=== PATIENT | male | born 1940 | race Caucasian/White ===

== ENCOUNTER 2019-06-12 15:50 | Inpatient (IN) ==
[2019-06-12] MEDS ORDERED: Furosemide 40 MG/4 ML VIAL IVP SCH (18:04)
[2019-06-12] MEDS ORDERED: *HR* Dextrose 50 % in Water (Syg) 50 ML SYRINGE IVP PRN (18:25)
[2019-06-12] MEDS ORDERED: D5% in Water 1,000 ML IVC PRN (18:25)
[2019-06-12] MEDS ORDERED: Dextrose Gel 15 GM/37.5 ML TUBE PO PRN ×2 (18:25)
[2019-06-12] MEDS ORDERED: Albumin 25% 25gram/100mL 25 GM/100 ML IV.SOLN IVPB ONE (19:09)
[2019-06-12 19:38] LABS: Adenovirus Not Detected (Not Detect); Bordetella Pertussis Not Detected (Not Detect); Chlamydophila pneumoniae Not Detected (Not Detect); Coronavirus 229E Not Detected (Not Detect); Coronavirus HKU1 Not Detected (Not Detect); Coronavirus NL63 Not Detected (Not Detect); Coronavirus OC43 Not Detected (Not Detect); Human Metapneumovirus Not Detected (Not Detect); Human Rhinovirus/Enterovirus Not Detected (Not Detect); Influenza A Subtype 2009 H1 Not Detected (Not Detect); Influenza A Untypeable Not Detected (Not Detect); Influenza B Not Detected (Not Detect); Mycoplasma pneumoniae Not Detected (Not Detect); Parainfluenza Virus 1 Not Detected (Not Detect); Parainfluenza Virus 2 Not Detected (Not Detect); Parainfluenza Virus 3 Not Detected (Not Detect); Parainfluenza Virus 4 Not Detected (Not Detect); Respiratory Syncytial Virus Not Detected (Not Detect)
[2019-06-12] MEDS ORDERED: Phenylephrine Nasal 0.25% 15 ML BOTTLE NS ONE (20:01)
[2019-06-12] MEDS: Insulin LISPRO 300 UNITS/3 ML VIAL SQ SCH (20:38)
[2019-06-12] MEDS: Furosemide 40 MG/4 ML VIAL IVP SCH (22:12)
[2019-06-12] MEDS: *HR* Heparin 5,000 UNIT/ML VIAL SQ SCH (22:13)
[2019-06-13 05:25] LABS: Calcium 9.2 mg/dL (8.6-10.3); Potassium 4.9 mEq/L (3.5-5.1)
[2019-06-13] MEDS: *HR* Heparin 5,000 UNIT/ML VIAL SQ SCH ×3 (05:27→22:40)
[2019-06-13] MEDS ORDERED: Gadolinium Contrast Agent (WT Based) IV PRN (07:17)
[2019-06-13] MEDS: amLODIPine 5 MG TABLET PO SCH (08:28)
[2019-06-13] MEDS: Aspirin 81 MG TAB.CHEW PO SCH (08:28)
[2019-06-13] MEDS: Furosemide 40 MG/4 ML VIAL IVP SCH (08:28)
[2019-06-13] MEDS: Insulin LISPRO 300 UNITS/3 ML VIAL SQ SCH ×4 (08:29→20:08)
[2019-06-13] MEDS: Albumin 25% 25gram/100mL 25 GM/100 ML IV.SOLN IVPB SCH ×2 (08:57→15:15)
[2019-06-13] MEDS ORDERED: Furosemide 20 MG/2 ML VIAL IVP SCH (17:00)
[2019-06-14] MEDS: Albumin 25% 25gram/100mL 25 GM/100 ML IV.SOLN IVPB SCH (00:15)
[2019-06-14 02:16] LABS: Calcium 9.1 mg/dL (8.6-10.3); Potassium 4.3 mEq/L (3.5-5.1)
[2019-06-14 05:43] LABS: Basophils % 0.2 %; Eosinophils # 0.1 K/mcL (0.0-0.6); Eosinophils % 0.7 %; Hematocrit 35.7 % (37.5-50.1); Hemoglobin 11.1 g/dL (12.9-16.9); Immature Granulocytes % 0.4 % (0-4); Lymphocytes # 1.7 K/mcL (0.6-4.6); Lymphocytes % 19.3 %; Mean Corpuscular HGB Conc 31.1 g/dL (31.6-35.5); Mean Corpuscular Hemoglobin 29.4 pg (28.0-33.3); Mean Corpuscular Volume 94.7 fL (83.0-100.0); Monocytes # 0.7 K/mcL (0.0-1.3); Monocytes % 8.1 %; Neutrophils # 6.4 K/mcL (1.6-8.9); Platelet Count 136 K/mcL (140-400); Red Blood Count 3.77 M/mcL (4.19-5.50); Red Cell Distribution Width 14.6 % (11.5-14.5); Segmented Neutrophils % 71.3 %; White Blood Count 8.9 K/mcL (4.3-11.1)
[2019-06-14] MEDS: *HR* Heparin 5,000 UNIT/ML VIAL SQ SCH ×2 (05:50→15:28)
[2019-06-14] MEDS: Insulin LISPRO 300 UNITS/3 ML VIAL SQ SCH ×2 (07:34→13:21)
[2019-06-14] MEDS: amLODIPine 5 MG TABLET PO SCH (08:00)
[2019-06-14] MEDS: Aspirin 81 MG TAB.CHEW PO SCH (08:00)
[2019-06-14] MEDS: Albumin 25% 25gram/100mL 25 GM/100 ML IV.SOLN IVC SCH ×2 (11:01→12:46)
[2019-06-14 11:31] VITALS: BP 138/86
== END 2019-06-14 16:42 | disposition home or self-care (01) | DRG 291 ==
LOC: 3BNU → SUATTDRO 06-13 13:41
PROVIDERS: ADMIT Internal Medicine; ATTEND Internal Medicine

== ENCOUNTER 2019-08-06 14:08 | Inpatient (IN) ==
[2019-08-06 14:56] LABS: Basophils % 0.5 %; Eosinophils # 1.1 K/mcL (0.0-0.6); Eosinophils % 13.5 %; Hematocrit 34.3 % (37.5-50.1); Hemoglobin 11.5 g/dL (12.9-16.9); Immature Granulocytes % 0.3 % (0-4); Lymphocytes # 1.7 K/mcL (0.6-4.6); Lymphocytes % 21.5 %; Mean Corpuscular HGB Conc 33.5 g/dL (31.6-35.5); Mean Corpuscular Volume 92.5 fL (83.0-100.0); Mean Platelet Volume 13.2 fL (9.4-12.4); Monocytes # 0.4 K/mcL (0.0-1.3); Neutrophils # 4.6 K/mcL (1.6-8.9); Platelet Count 166 K/mcL (140-400); Red Blood Count 3.71 M/mcL (4.19-5.50); Red Cell Distribution Width 14.7 % (11.5-14.5); Segmented Neutrophils % 59.2 %; White Blood Count 7.8 K/mcL (4.3-11.1)
[2019-08-06 15:02] LABS: Prothrombin Time 11.8 Seconds (9.4-12.1)
[2019-08-06 15:05] LABS: Activated Partial Thrombo Time 26.4 Seconds (26.0-36.0)
[2019-08-06 15:21] LABS: Alanine Aminotransferase 24 Units/L (7-52); Albumin 3.8 g/dL (3.5-5.7); Albumin/Globulin Ratio 1.4 (1.1-2.2); Alkaline Phosphatase 50 Units/L (34-104); Aspartate Amino Transferase 16 Units/L (13-39); BUN/Creatinine Ratio 21 (6-26); Bilirubin,Total 0.4 mg/dL (0.3-1.0); Blood Urea Nitrogen 62 mg/dL (8-23); Calcium 9.1 mg/dL (8.6-10.3); Carbon Dioxide 24 mEq/L (23-29); Chloride 107 mEq/L (98-107); Globulin 2.7 g/dL (2.4-3.5); Glucose 173 mg/dL (70-105); Osmolality,Calculated 318 (280-300); Potassium 4.9 mEq/L (3.5-5.1); Sodium 143 mEq/L (136-145); Total Protein 6.5 g/dL (6.4-8.9); Troponin I < 0.03 ng/mL (< 0.04); eGFR For African Americans 25 (> 60); eGFR For Non-African Americans 21 (> 60)
[2019-08-06] MEDS ORDERED: Bumetanide 1 MG/4 ML VIAL IVP ONE (15:31)
[2019-08-06] MEDS ORDERED: Ondansetron 4 MG/2 ML VIAL IVP PRN (15:54)
[2019-08-06] MEDS ORDERED: Acetaminophen 325 MG TABLET PO PRN (15:54)
[2019-08-06] MEDS: Pantoprazole 40 MG VIAL IVP SCH (18:17)
[2019-08-06] MEDS: Bumetanide 1 MG/4 ML VIAL IVP SCH (18:17)
[2019-08-06] MEDS: *HR* Heparin 5,000 UNIT/ML VIAL SQ SCH (18:17)
[2019-08-06] MEDS: carvediloL 25 MG TABLET PO SCH (20:45)
[2019-08-07] MEDS: *HR* Heparin 5,000 UNIT/ML VIAL SQ SCH ×2 (05:05→18:03)
[2019-08-07] MEDS: Pantoprazole 40 MG VIAL IVP SCH ×2 (05:06→09:25)
[2019-08-07 06:34] LABS: Hemoglobin 10.7 g/dL (12.9-16.9); Mean Corpuscular HGB Conc 31.5 g/dL (31.6-35.5); Mean Corpuscular Hemoglobin 29.5 pg (28.0-33.3); Mean Corpuscular Volume 93.7 fL (83.0-100.0); Platelet Count 136 K/mcL (140-400); Red Blood Count 3.63 M/mcL (4.19-5.50); Red Cell Distribution Width 14.7 % (11.5-14.5); White Blood Count 7.7 K/mcL (4.3-11.1)
[2019-08-07 06:58] LABS: Magnesium 2.4 mg/dL (1.6-2.6); Potassium 5.2 mEq/L (3.5-5.1); Troponin I 0.03 ng/mL (< 0.04)
[2019-08-07] MEDS ORDERED: *HR* Dextrose 50 % in Water (Syg) 50 ML SYRINGE IVP PRN (08:23)
[2019-08-07] MEDS ORDERED: D5% in Water 1,000 ML IVC PRN (08:23)
[2019-08-07] MEDS ORDERED: Dextrose Gel 15 GM/37.5 ML TUBE PO PRN ×2 (08:23)
[2019-08-07] MEDS ORDERED: *HR* SitaGLIPtin 100 MG TABLET PO SCH (09:00)
[2019-08-07 09:25] LABS: Estimated Average Glucose 186 mg/dl
[2019-08-07] MEDS: Bumetanide 1 MG/4 ML VIAL IVP SCH ×2 (09:25→18:03)
[2019-08-07] MEDS: metOLazone 2.5 MG TABLET PO SCH (12:27)
[2019-08-07] MEDS: amLODIPine 5 MG TABLET PO SCH (12:27)
[2019-08-07] MEDS: Aspirin 81 MG TAB.CHEW PO SCH (12:27)
[2019-08-07] MEDS: carvediloL 25 MG TABLET PO SCH ×2 (12:27→20:34)
[2019-08-07] MEDS: Insulin LISPRO 300 UNITS/3 ML VIAL SQ SCH ×2 (12:28→18:15)
[2019-08-07] MEDS: 0.9 % Sodium Chloride 500 ML IVC SCH (14:00)
[2019-08-07] MEDS ORDERED: *HR* Propofol 200 MG/20 ML VIAL IVP ONE (14:11)
[2019-08-07] MEDS ORDERED: Lidocaine -MPF 2% 2 ML VIAL ONE (14:11)
[2019-08-07] MEDS ORDERED: SODIUM CHLORIDE/NAHCO3/KCL/PEG 4,000 ML SOLN.RECON PO ONE (17:00)
[2019-08-07 20:53] LABS: Creatinine,Urine 31 mg/dL; Microalbumin,Urine < 7 mg/L; Protein/Creatinine Ratio,Urine 0.13 mg/mg (0.00-0.20); Sodium, Urine 118.6 mEq/L
[2019-08-08] MEDS: Insulin LISPRO 300 UNITS/3 ML VIAL SQ SCH ×4 (00:46→18:56)
[2019-08-08] MEDS: *HR* Heparin 5,000 UNIT/ML VIAL SQ SCH ×2 (05:24→19:00)
[2019-08-08 05:33] LABS: Basophils # 0.1 K/mcL (0.0-0.2); Basophils % 0.6 %; Eosinophils # 1.1 K/mcL (0.0-0.6); Eosinophils % 11.8 %; Hematocrit 36.9 % (37.5-50.1); Hemoglobin 11.6 g/dL (12.9-16.9); Immature Granulocytes % 0.4 % (0-4); Lymphocytes % 22.3 %; Mean Corpuscular HGB Conc 31.4 g/dL (31.6-35.5); Mean Corpuscular Hemoglobin 29.5 pg (28.0-33.3); Mean Corpuscular Volume 93.9 fL (83.0-100.0); Mean Platelet Volume 12.8 fL (9.4-12.4); Monocytes # 0.6 K/mcL (0.0-1.3); Monocytes % 6.9 %; Neutrophils # 5.2 K/mcL (1.6-8.9); Platelet Count 145 K/mcL (140-400); Red Blood Count 3.93 M/mcL (4.19-5.50); Red Cell Distribution Width 14.6 % (11.5-14.5); White Blood Count 8.9 K/mcL (4.3-11.1)
[2019-08-08] MEDS: Pantoprazole 40 MG VIAL IVP SCH ×2 (05:37→18:56)
[2019-08-08 06:16] LABS: Calcium 9.3 mg/dL (8.6-10.3); Potassium 4.7 mEq/L (3.5-5.1)
[2019-08-08] MEDS: Bumetanide 1 MG/4 ML VIAL IVP SCH ×2 (08:25→18:56)
[2019-08-08] MEDS: carvediloL 25 MG TABLET PO SCH ×2 (08:26→18:55)
[2019-08-08] MEDS: amLODIPine 5 MG TABLET PO SCH (08:26)
[2019-08-08] MEDS: Aspirin 81 MG TAB.CHEW PO SCH (08:27)
[2019-08-08] MEDS ORDERED: Propofol 500 MG/50 ML INFUS..BTL ONE (14:53)
[2019-08-08] MEDS: 0.9 % Sodium Chloride 500 ML IVC SCH (19:37)
[2019-08-09] MEDS: Insulin LISPRO 300 UNITS/3 ML VIAL SQ SCH ×3 (00:06→13:04)
[2019-08-09] MEDS: *HR* Heparin 5,000 UNIT/ML VIAL SQ SCH (06:12)
[2019-08-09] MEDS: Pantoprazole 40 MG VIAL IVP SCH (06:19)
[2019-08-09 07:05] LABS: Basophils % 0.6 %; Eosinophils # 0.9 K/mcL (0.0-0.6); Eosinophils % 12.8 %; Hematocrit 34.5 % (37.5-50.1); Hemoglobin 10.7 g/dL (12.9-16.9); Immature Granulocytes % 0.1 % (0-4); Lymphocytes # 1.7 K/mcL (0.6-4.6); Lymphocytes % 22.9 %; Mean Corpuscular Hemoglobin 29.8 pg (28.0-33.3); Mean Corpuscular Volume 96.1 fL (83.0-100.0); Mean Platelet Volume 12.9 fL (9.4-12.4); Monocytes # 0.6 K/mcL (0.0-1.3); Platelet Count 128 K/mcL (140-400); Red Blood Count 3.59 M/mcL (4.19-5.50); Red Cell Distribution Width 14.6 % (11.5-14.5); Segmented Neutrophils % 55.6 %; White Blood Count 7.2 K/mcL (4.3-11.1)
[2019-08-09 07:30] LABS: Calcium 8.9 mg/dL (8.6-10.3); Potassium 4.5 mEq/L (3.5-5.1)
[2019-08-09] MEDS ORDERED: Spironolactone 25 MG TABLET PO SCH (09:00)
[2019-08-09] MEDS: metOLazone 2.5 MG TABLET PO SCH (09:26)
[2019-08-09] MEDS: Bumetanide 1 MG/4 ML VIAL IVP SCH (09:26)
[2019-08-09] MEDS: amLODIPine 5 MG TABLET PO SCH (09:26)
[2019-08-09] MEDS: Aspirin 81 MG TAB.CHEW PO SCH (09:26)
[2019-08-09] MEDS: carvediloL 25 MG TABLET PO SCH (09:26)
[2019-08-09 14:36] VITALS: BP 137/80
[2019-08-09] MEDS ORDERED: Bumetanide 1 MG TABLET PO SCH (17:00)
== END 2019-08-09 16:14 | disposition home health service (06) | DRG 291 ==
LOC: 3BNU 14:08 → EMEROOARM 14:08 → SUATTDRO 16:05 → 3BNU 16:28
PROVIDERS: ADMIT Internal Medicine; ATTEND Internal Medicine
PROC: ENDOEBX (2019-08-07 13:30)

== ENCOUNTER 2020-02-12 15:23 | Inpatient (IN) ==
[2020-02-12 15:59] LABS: Basophils % 0.5 %; Eosinophils # 0.7 K/mcL (0.0-0.6); Eosinophils % 11.6 %; Hematocrit 36.3 % (37.5-50.1); Hemoglobin 10.9 g/dL (12.9-16.9); Immature Granulocytes % 0.3 % (0-4); Lymphocytes # 1.9 K/mcL (0.6-4.6); Mean Corpuscular Hemoglobin 29.5 pg (28.0-33.3); Mean Corpuscular Volume 98.4 fL (83.0-100.0); Mean Platelet Volume 12.2 fL (9.4-12.4); Monocytes # 0.6 K/mcL (0.0-1.3); Monocytes % 8.9 %; Platelet Count 141 K/mcL (140-400); Red Blood Count 3.69 M/mcL (4.19-5.50); Red Cell Distribution Width 15.8 % (11.5-14.5); Segmented Neutrophils % 47.7 %; White Blood Count 6.2 K/mcL (4.3-11.1)
[2020-02-12 16:25] LABS: Calcium 9.6 mg/dL (8.6-10.3); Potassium 4.3 mEq/L (3.5-5.1); Troponin I 0.06 ng/mL (< 0.04)
[2020-02-12] MEDS ORDERED: Furosemide 40 MG/4 ML VIAL IVP ONE (17:12)
[2020-02-12] MEDS ORDERED: Naloxone 0.4 MG/ML INJ IVP PRN (18:31)
[2020-02-12] MEDS ORDERED: Dextrose Gel 15 GM/37.5 ML TUBE PO PRN ×2 (18:55)
[2020-02-12] MEDS ORDERED: *HR* Dextrose 50 % in Water (Syg) 50 ML SYRINGE IVP PRN (18:55)
[2020-02-12] MEDS ORDERED: D5% in Water 1,000 ML IVC PRN (18:55)
[2020-02-12] MEDS ORDERED: Ergocalciferol (VIT D2) 50,000 UNIT (1.25MG) CAP PO SCH (19:00)
[2020-02-12] MEDS ORDERED: Perflutren Lipid Microsphere 1.3 ML in 0.9 % Sodium Chloride 8.7 ML IVP ONE (19:38)
[2020-02-12] MEDS ORDERED: Furosemide 40 MG in 0.9 % Sodium Chloride 50 ML IV SCH (21:00)
[2020-02-12] MEDS: carvediloL 25 MG TABLET PO SCH (21:09)
[2020-02-12] MEDS: Furosemide 40 MG/4 ML VIAL IVP SCH (21:09)
[2020-02-12] MEDS: metOLazone 5 MG TABLET PO SCH (21:10)
[2020-02-12] MEDS: amLODIPine 5 MG TABLET PO SCH (21:10)
[2020-02-12] MEDS: Insulin LISPRO 300 UNITS/3 ML VIAL SQ SCH (21:20)
[2020-02-13 01:06] LABS: Basophils % 0.6 %; Eosinophils # 0.6 K/mcL (0.0-0.6); Eosinophils % 11.6 %; Hematocrit 34.3 % (37.5-50.1); Hemoglobin 10.3 g/dL (12.9-16.9); Immature Granulocytes % 0.4 % (0-4); Lymphocytes # 1.4 K/mcL (0.6-4.6); Lymphocytes % 27.4 %; Mean Corpuscular Hemoglobin 29.8 pg (28.0-33.3); Mean Corpuscular Volume 99.1 fL (83.0-100.0); Mean Platelet Volume 12.3 fL (9.4-12.4); Monocytes # 0.4 K/mcL (0.0-1.3); Monocytes % 7.9 %; Neutrophils # 2.6 K/mcL (1.6-8.9); Platelet Count 121 K/mcL (140-400); Red Blood Count 3.46 M/mcL (4.19-5.50); Red Cell Distribution Width 15.3 % (11.5-14.5); Segmented Neutrophils % 52.1 %; White Blood Count 4.9 K/mcL (4.3-11.1)
[2020-02-13 01:23] LABS: Calcium 8.8 mg/dL (8.6-10.3); Phosphorous 2.8 mg/dL (2.7-4.5); Potassium 3.9 mEq/L (3.5-5.1)
[2020-02-13] MEDS: Insulin LISPRO 300 UNITS/3 ML VIAL SQ SCH ×4 (09:45→21:37)
[2020-02-13] MEDS: Aspirin Enteric Coated 81 MG Tablet PO SCH (10:13)
[2020-02-13] MEDS: Furosemide 40 MG/4 ML VIAL IVP SCH ×2 (10:13→21:36)
[2020-02-13] MEDS: metOLazone 5 MG TABLET PO SCH (10:13)
[2020-02-13] MEDS: Spironolactone 25 MG TABLET PO SCH (10:13)
[2020-02-13] MEDS: carvediloL 25 MG TABLET PO SCH ×3 (10:13→21:37)
[2020-02-13] MEDS: *HR* Heparin 5,000 UNIT/ML VIAL SQ SCH (21:36)
[2020-02-13] MEDS: amLODIPine 5 MG TABLET PO SCH (21:37)
[2020-02-14 03:47] LABS: Calcium 8.8 mg/dL (8.6-10.3); Magnesium 1.9 mg/dL (1.6-2.6); Potassium 4.4 mEq/L (3.5-5.1)
[2020-02-14 03:56] LABS: Thyroid Stimulating Hormone 2.897 mcIU/mL (0.340-5.600)
[2020-02-14] MEDS: *HR* Heparin 5,000 UNIT/ML VIAL SQ SCH ×3 (05:10→20:05)
[2020-02-14] MEDS: Aspirin Enteric Coated 81 MG Tablet PO SCH (09:28)
[2020-02-14] MEDS: Spironolactone 25 MG TABLET PO SCH (09:29)
[2020-02-14] MEDS: Insulin LISPRO 300 UNITS/3 ML VIAL SQ SCH ×4 (09:29→21:31)
[2020-02-14] MEDS: carvediloL 25 MG TABLET PO SCH ×3 (09:29→20:05)
[2020-02-14] MEDS ORDERED: Furosemide 40 MG/4 ML VIAL IVP SCH (15:00)
[2020-02-14] MEDS: amLODIPine 5 MG TABLET PO SCH (20:05)
[2020-02-15 02:43] LABS: Calcium 8.8 mg/dL (8.6-10.3); Magnesium 2.1 mg/dL (1.6-2.6); Potassium 4.4 mEq/L (3.5-5.1)
[2020-02-15] MEDS: *HR* Heparin 5,000 UNIT/ML VIAL SQ SCH ×3 (05:23→20:51)
[2020-02-15] MEDS: Insulin LISPRO 300 UNITS/3 ML VIAL SQ SCH ×4 (08:08→20:34)
[2020-02-15] MEDS: carvediloL 25 MG TABLET PO SCH ×3 (08:08→20:50)
[2020-02-15] MEDS: Aspirin Enteric Coated 81 MG Tablet PO SCH (08:08)
[2020-02-15] MEDS: amLODIPine 5 MG TABLET PO SCH (20:50)
[2020-02-16 02:11] LABS: Basophils % 0.4 %; Eosinophils # 0.5 K/mcL (0.0-0.6); Eosinophils % 10.2 %; Hematocrit 32.2 % (37.5-50.1); Hemoglobin 9.7 g/dL (12.9-16.9); Immature Granulocytes % 0.2 % (0-4); Lymphocytes # 1.3 K/mcL (0.6-4.6); Lymphocytes % 26.8 %; Mean Corpuscular HGB Conc 30.1 g/dL (31.6-35.5); Mean Corpuscular Hemoglobin 29.2 pg (28.0-33.3); Mean Platelet Volume 12.3 fL (9.4-12.4); Monocytes # 0.4 K/mcL (0.0-1.3); Monocytes % 8.2 %; Neutrophils # 2.6 K/mcL (1.6-8.9); Platelet Count 123 K/mcL (140-400); Red Blood Count 3.32 M/mcL (4.19-5.50); Red Cell Distribution Width 15.3 % (11.5-14.5); Segmented Neutrophils % 54.2 %; White Blood Count 4.9 K/mcL (4.3-11.1)
[2020-02-16 02:25] LABS: Calcium 8.6 mg/dL (8.6-10.3); Potassium 4.4 mEq/L (3.5-5.1)
[2020-02-16] MEDS: *HR* Heparin 5,000 UNIT/ML VIAL SQ SCH ×3 (06:13→20:03)
[2020-02-16] MEDS ORDERED: Furosemide 40 MG/4 ML VIAL IVP ONE (07:12)
[2020-02-16] MEDS: carvediloL 25 MG TABLET PO SCH ×3 (07:48→20:03)
[2020-02-16] MEDS: Aspirin Enteric Coated 81 MG Tablet PO SCH (07:48)
[2020-02-16] MEDS: Insulin LISPRO 300 UNITS/3 ML VIAL SQ SCH ×4 (07:49→20:03)
[2020-02-16 16:47] LABS: Albumin 3.2 g/dL (3.5-5.7); Albumin/Globulin Ratio 1.3 (1.1-2.2); Bilirubin,Direct 0.1 mg/dL (0.0-0.2); Bilirubin,Indirect 0.3 mg/dL (0.0-1.0); Bilirubin,Total 0.4 mg/dL (0.3-1.0); Globulin 2.5 g/dL (2.4-3.5); Total Protein 5.7 g/dL (6.4-8.9)
[2020-02-16] MEDS: amLODIPine 5 MG TABLET PO SCH (20:03)
[2020-02-17 06:04] LABS: Basophils % 0.4 %; Eosinophils # 0.5 K/mcL (0.0-0.6); Eosinophils % 8.7 %; Hematocrit 33.1 % (37.5-50.1); Hemoglobin 9.8 g/dL (12.9-16.9); Immature Granulocytes % 0.4 % (0-4); Lymphocytes # 1.6 K/mcL (0.6-4.6); Lymphocytes % 29.8 %; Mean Corpuscular HGB Conc 29.6 g/dL (31.6-35.5); Mean Corpuscular Hemoglobin 29.1 pg (28.0-33.3); Mean Corpuscular Volume 98.2 fL (83.0-100.0); Mean Platelet Volume 12.8 fL (9.4-12.4); Monocytes # 0.4 K/mcL (0.0-1.3); Neutrophils # 2.9 K/mcL (1.6-8.9); Platelet Count 126 K/mcL (140-400); Red Blood Count 3.37 M/mcL (4.19-5.50); Red Cell Distribution Width 15.2 % (11.5-14.5); Segmented Neutrophils % 52.7 %; White Blood Count 5.5 K/mcL (4.3-11.1)
[2020-02-17 06:28] LABS: Calcium 8.9 mg/dL (8.6-10.3); Potassium 4.3 mEq/L (3.5-5.1)
[2020-02-17] MEDS: carvediloL 25 MG TABLET PO SCH ×3 (07:40→21:06)
[2020-02-17] MEDS: Aspirin Enteric Coated 81 MG Tablet PO SCH (07:40)
[2020-02-17] MEDS ORDERED: Furosemide 40 MG/4 ML VIAL IVP SCH (09:00)
[2020-02-17] MEDS: Insulin LISPRO 300 UNITS/3 ML VIAL SQ SCH ×4 (09:37→21:14)
[2020-02-17] MEDS ORDERED: Haloperidol Lactate 5 MG/ML VIAL IVP ONE (11:35)
[2020-02-17] MEDS: amLODIPine 5 MG TABLET PO SCH (21:06)
[2020-02-17] MEDS: Neosporin OINT 15 GM TUBE TP SCH (21:43)
[2020-02-18 02:21] LABS: Basophils % 0.6 %; Eosinophils # 0.6 K/mcL (0.0-0.6); Eosinophils % 9.2 %; Hematocrit 31.1 % (37.5-50.1); Hemoglobin 9.7 g/dL (12.9-16.9); Immature Granulocytes % 0.3 % (0-4); Immature Platelets 10.1 % (1.1-6.1); Lymphocytes # 1.6 K/mcL (0.6-4.6); Lymphocytes % 26.5 %; Mean Corpuscular HGB Conc 31.2 g/dL (31.6-35.5); Mean Corpuscular Hemoglobin 29.3 pg (28.0-33.3); Mean Platelet Volume 13.2 fL (9.4-12.4); Monocytes # 0.6 K/mcL (0.0-1.3); Neutrophils # 3.4 K/mcL (1.6-8.9); Nucleated Red Blood Cells 0.3 /100 WBC (0); Platelet Count 111 K/mcL (140-400); Red Blood Count 3.31 M/mcL (4.19-5.50); Red Cell Distribution Width 14.9 % (11.5-14.5); Segmented Neutrophils % 54.4 %; White Blood Count 6.2 K/mcL (4.3-11.1)
[2020-02-18 02:28] LABS: Calcium 8.6 mg/dL (8.6-10.3); Magnesium 2.2 mg/dL (1.6-2.6); Potassium 4.5 mEq/L (3.5-5.1)
[2020-02-18] MEDS: Neosporin OINT 15 GM TUBE TP SCH (07:28)
[2020-02-18] MEDS: carvediloL 25 MG TABLET PO SCH (07:47)
[2020-02-18] MEDS: Aspirin Enteric Coated 81 MG Tablet PO SCH (07:47)
[2020-02-18] MEDS: Insulin LISPRO 300 UNITS/3 ML VIAL SQ SCH ×2 (07:48→11:11)
[2020-02-18] MEDS ORDERED: Spironolactone 25 MG TABLET PO SCH (09:00)
[2020-02-18] MEDS ORDERED: Bumetanide 1 MG TABLET PO SCH (09:30)
[2020-02-18 11:09] VITALS: BP 137/72
== END 2020-02-18 13:05 | disposition home health service (06) | DRG 280 ==
LOC: 2ANU 15:23 → EMEROOARM 15:23 → 2ANU 18:11
PROVIDERS: ADMIT Pharmacist; ATTEND Pharmacist

== ENCOUNTER 2020-06-24 13:43 | Inpatient (IN) ==
[2020-06-24] MEDS ORDERED: Acetaminophen 325 MG TABLET PO PRN (15:58)
[2020-06-24] MEDS ORDERED: Ondansetron 4 MG/2 ML VIAL IVP PRN (15:58)
[2020-06-24] MEDS ORDERED: *HR* Dextrose 50 % in Water (Vial) 50 ML VIAL IVP PRN (16:12)
[2020-06-24] MEDS ORDERED: Dextrose Gel 15 GM/37.5 ML TUBE PO PRN ×2 (16:12)
[2020-06-24] MEDS ORDERED: D5% in Water 1,000 ML IVC PRN (16:12)
[2020-06-24] MEDS ORDERED: *HR* Heparin 5,000 UNIT/ML VIAL IVP PRN ×2 (16:35)
[2020-06-24 16:54] LABS: Troponin I 0.12 ng/mL (< 0.04)
[2020-06-24] MEDS ORDERED: Perflutren Lipid Microsphere 1.3 ML in 0.9 % Sodium Chloride 8.7 ML IVP PRN (16:54)
[2020-06-24 17:12] LABS: Hematocrit 33.7 % (37.5-50.1); Mean Corpuscular HGB Conc 29.7 g/dL (31.6-35.5); Mean Corpuscular Volume 97.7 fL (83.0-100.0); Mean Platelet Volume 12.8 fL (9.4-12.4); Platelet Count 133 K/mcL (140-400); Red Blood Count 3.45 M/mcL (4.19-5.50); White Blood Count 6.1 K/mcL (4.3-11.1)
[2020-06-24 18:41] LABS: Thyroid Stimulating Hormone 1.681 mcIU/mL (0.340-5.600)
[2020-06-24] MEDS: Heparin 25,000UNIT/250ML 1/2NS 25,000 UNIT/250 ML IV.SOLN IVC SCH (18:47)
[2020-06-24] MEDS: Bumetanide 1 MG TABLET PO SCH (18:58)
[2020-06-24] MEDS: carvediloL 25 MG TABLET PO SCH (18:59)
[2020-06-24] MEDS: cephALEXin 500 MG CAPSULE PO SCH (19:22)
[2020-06-24 22:34] LABS: Hematocrit 29.6 % (37.5-50.1); Hemoglobin 9.4 g/dL (12.9-16.9)
[2020-06-25] MEDS: cephALEXin 500 MG CAPSULE PO SCH ×2 (08:02→21:08)
[2020-06-25] MEDS: Bumetanide 1 MG TABLET PO SCH ×2 (08:02→17:04)
[2020-06-25] MEDS: carvediloL 25 MG TABLET PO SCH ×2 (08:02→17:05)
[2020-06-25] MEDS: Aspirin Enteric Coated 81 MG Tablet PO SCH (08:03)
[2020-06-25 08:14] LABS: Adenovirus Not Detected (Not Detect); Bordetella Pertussis Not Detected (Not Detect); Chlamydophila pneumoniae Not Detected (Not Detect); Coronavirus 229E Not Detected (Not Detect); Coronavirus HKU1 Not Detected (Not Detect); Coronavirus NL63 Not Detected (Not Detect); Coronavirus OC43 Not Detected (Not Detect); Human Metapneumovirus Not Detected (Not Detect); Human Rhinovirus/Enterovirus Not Detected (Not Detect); Influenza A Subtype 2009 H1 Not Detected (Not Detect); Influenza B Not Detected (Not Detect); Mycoplasma pneumoniae Not Detected (Not Detect); Parainfluenza Virus 1 Not Detected (Not Detect); Parainfluenza Virus 2 Not Detected (Not Detect); Parainfluenza Virus 3 Not Detected (Not Detect); Parainfluenza Virus 4 Not Detected (Not Detect); Respiratory Syncytial Virus Not Detected (Not Detect)
[2020-06-25 09:24] LABS: Basophils # 0.1 K/mcL (0.0-0.2); Eosinophils # 0.8 K/mcL (0.0-0.6); Eosinophils % 13.3 %; Hemoglobin 9.7 g/dL (12.9-16.9); Immature Granulocytes % 0.3 % (0-4); Lymphocytes # 1.7 K/mcL (0.6-4.6); Lymphocytes % 27.6 %; Mean Corpuscular HGB Conc 30.3 g/dL (31.6-35.5); Mean Corpuscular Hemoglobin 29.1 pg (28.0-33.3); Mean Corpuscular Volume 96.1 fL (83.0-100.0); Mean Platelet Volume 12.8 fL (9.4-12.4); Monocytes # 0.6 K/mcL (0.0-1.3); Monocytes % 9.6 %; Platelet Count 135 K/mcL (140-400); Red Blood Count 3.33 M/mcL (4.19-5.50); Segmented Neutrophils % 48.2 %; White Blood Count 6.3 K/mcL (4.3-11.1)
[2020-06-25 09:27] LABS: INR 1.1; Prothrombin Time 12.5 Seconds (9.4-12.1)
[2020-06-25 09:35] LABS: Estimated Average Glucose 180 mg/dl
[2020-06-25 09:47] LABS: Calcium 9.8 mg/dL (8.6-10.3); Potassium 4.3 mEq/L (3.5-5.1)
[2020-06-25] MEDS: Heparin 25,000UNIT/250ML 1/2NS 25,000 UNIT/250 ML IV.SOLN IVC SCH (12:00)
[2020-06-25 14:10] LABS: Hematocrit 30.1 % (37.5-50.1); Hemoglobin 9.5 g/dL (12.9-16.9)
[2020-06-25] MEDS: Spironolactone 25 MG TABLET PO SCH (15:00)
[2020-06-25] MEDS: Levalbuterol Neb 0.63 MG/3 ML IH SCH ×2 (16:01→23:16)
[2020-06-25] MEDS: Insulin LISPRO 300 UNITS/3 ML VIAL SQ SCH (16:03)
[2020-06-25] MEDS: *HR* Acetylcysteine 20% 600 MG/3 ML ORAL SYRINGE PO SCH (17:58)
[2020-06-26 01:20] LABS: Hemoglobin 9.3 g/dL (12.9-16.9)
[2020-06-26 01:22] LABS: Basophils % 0.7 %; Eosinophils # 0.7 K/mcL (0.0-0.6); Eosinophils % 12.4 %; Immature Granulocytes % 0.3 % (0-4); Immature Platelets 11.5 % (1.1-6.1); Lymphocytes # 1.7 K/mcL (0.6-4.6); Lymphocytes % 28.5 %; Mean Corpuscular Hemoglobin 29.2 pg (28.0-33.3); Mean Corpuscular Volume 97.2 fL (83.0-100.0); Mean Platelet Volume 13.2 fL (9.4-12.4); Monocytes # 0.6 K/mcL (0.0-1.3); Monocytes % 10.2 %; Neutrophils # 2.9 K/mcL (1.6-8.9); Platelet Count 132 K/mcL (140-400); Red Blood Count 3.19 M/mcL (4.19-5.50); Red Cell Distribution Width 15.1 % (11.5-14.5); Segmented Neutrophils % 47.9 %
[2020-06-26 01:30] LABS: Calcium 9.6 mg/dL (8.6-10.3); Magnesium 1.9 mg/dL (1.6-2.6); Potassium 4.2 mEq/L (3.5-5.1)
[2020-06-26] MEDS: Insulin LISPRO 300 UNITS/3 ML VIAL SQ SCH ×5 (02:41→20:33)
[2020-06-26] MEDS: Levalbuterol Neb 0.63 MG/3 ML IH SCH ×4 (04:27→21:39)
[2020-06-26] MEDS: Heparin 25,000UNIT/250ML 1/2NS 25,000 UNIT/250 ML IV.SOLN IVC SCH ×3 (07:20→14:59)
[2020-06-26] MEDS: cephALEXin 500 MG CAPSULE PO SCH ×2 (08:07→20:35)
[2020-06-26] MEDS: Spironolactone 25 MG TABLET PO SCH (08:07)
[2020-06-26] MEDS: carvediloL 25 MG TABLET PO SCH ×2 (08:07→17:07)
[2020-06-26] MEDS: Aspirin Enteric Coated 81 MG Tablet PO SCH (08:07)
[2020-06-26] MEDS: Bumetanide 1 MG TABLET PO SCH (08:07)
[2020-06-26] MEDS: *HR* Acetylcysteine 20% 600 MG/3 ML ORAL SYRINGE PO SCH ×3 (08:07→14:59)
[2020-06-26 11:03] LABS: INR 1.1; Prothrombin Time 12.5 Seconds (9.4-12.1)
[2020-06-26] MEDS ORDERED: *HR* Heparin 5,000 UNIT/ML VIAL IVP PRN ×2 (13:53)
[2020-06-26] MEDS ORDERED: metOLazone 2.5 MG TABLET PO SCH ×2 (14:00)
[2020-06-26] MEDS ORDERED: Warfarin perPT PO PRN (18:00)
[2020-06-26] MEDS ORDERED: *HR* Warfarin 5 MG TABLET PO ONE (18:00)
[2020-06-26] MEDS: amLODIPine 5 MG TABLET PO SCH (20:34)
[2020-06-27 02:38] LABS: Basophils % 0.5 %; Eosinophils # 0.9 K/mcL (0.0-0.6); Eosinophils % 13.2 %; Hematocrit 31.1 % (37.5-50.1); Hemoglobin 9.5 g/dL (12.9-16.9); Immature Granulocytes % 0.5 % (0-4); Lymphocytes % 30.7 %; Mean Corpuscular HGB Conc 30.5 g/dL (31.6-35.5); Mean Corpuscular Hemoglobin 29.3 pg (28.0-33.3); Mean Platelet Volume 12.9 fL (9.4-12.4); Monocytes # 0.7 K/mcL (0.0-1.3); Monocytes % 10.3 %; Platelet Count 145 K/mcL (140-400); Red Blood Count 3.24 M/mcL (4.19-5.50); Segmented Neutrophils % 44.8 %; White Blood Count 6.6 K/mcL (4.3-11.1)
[2020-06-27 02:39] LABS: Prothrombin Time 11.8 Seconds (9.4-12.1)
[2020-06-27 02:55] LABS: Calcium 9.7 mg/dL (8.6-10.3); Potassium 4.6 mEq/L (3.5-5.1)
[2020-06-27] MEDS: Levalbuterol Neb 0.63 MG/3 ML IH SCH ×4 (03:31→21:52)
[2020-06-27] MEDS: cephALEXin 500 MG CAPSULE PO SCH ×2 (08:49→20:50)
[2020-06-27] MEDS: carvediloL 25 MG TABLET PO SCH ×2 (08:49→17:42)
[2020-06-27] MEDS: Aspirin Enteric Coated 81 MG Tablet PO SCH (08:49)
[2020-06-27] MEDS: *HR* Acetylcysteine 20% 600 MG/3 ML ORAL SYRINGE PO SCH ×3 (08:50→17:42)
[2020-06-27] MEDS: Bumetanide 1 MG TABLET PO SCH ×2 (08:55→17:42)
[2020-06-27] MEDS: Insulin LISPRO 300 UNITS/3 ML VIAL SQ SCH ×4 (08:57→20:50)
[2020-06-27] MEDS: Heparin 25,000UNIT/250ML 1/2NS 25,000 UNIT/250 ML IV.SOLN IVC SCH (17:44)
[2020-06-27] MEDS ORDERED: *HR* Warfarin 5 MG TABLET PO ONE (18:00)
[2020-06-27] MEDS: amLODIPine 5 MG TABLET PO SCH (20:50)
[2020-06-28 03:00] LABS: White Blood Count 7.3 K/mcL (4.3-11.1)
[2020-06-28 03:01] LABS: Basophils # 0.1 K/mcL (0.0-0.2); Basophils % 0.7 %; Eosinophils # 0.9 K/mcL (0.0-0.6); Hematocrit 30.7 % (37.5-50.1); Hemoglobin 9.6 g/dL (12.9-16.9); Immature Granulocytes % 0.6 % (0-4); Lymphocytes # 2.2 K/mcL (0.6-4.6); Lymphocytes % 29.9 %; Mean Corpuscular HGB Conc 31.3 g/dL (31.6-35.5); Mean Corpuscular Hemoglobin 29.9 pg (28.0-33.3); Mean Corpuscular Volume 95.6 fL (83.0-100.0); Mean Platelet Volume 12.6 fL (9.4-12.4); Monocytes # 0.6 K/mcL (0.0-1.3); Monocytes % 8.7 %; Neutrophils # 3.4 K/mcL (1.6-8.9); Nucleated Red Blood Cells 0.3 /100 WBC (0); Platelet Count 149 K/mcL (140-400); Red Blood Count 3.21 M/mcL (4.19-5.50); Segmented Neutrophils % 47.1 %
[2020-06-28 03:04] LABS: Heparin anti-factor XA UFH 0.63 IU/mL (0.30-0.70); INR 1.1; Prothrombin Time 12.9 Seconds (9.4-12.1)
[2020-06-28 03:19] LABS: Calcium 9.8 mg/dL (8.6-10.3)
[2020-06-28] MEDS: Levalbuterol Neb 0.63 MG/3 ML IH SCH ×4 (03:37→21:32)
[2020-06-28] MEDS: Insulin LISPRO 300 UNITS/3 ML VIAL SQ SCH ×4 (08:11→21:53)
[2020-06-28] MEDS: *HR* Acetylcysteine 20% 600 MG/3 ML ORAL SYRINGE PO SCH ×3 (08:19→17:16)
[2020-06-28] MEDS: Aspirin Enteric Coated 81 MG Tablet PO SCH (08:20)
[2020-06-28] MEDS: carvediloL 25 MG TABLET PO SCH ×2 (08:20→17:16)
[2020-06-28] MEDS: Bumetanide 1 MG TABLET PO SCH ×2 (08:20→17:16)
[2020-06-28] MEDS: cephALEXin 500 MG CAPSULE PO SCH (08:20)
[2020-06-28 09:27] LABS: INR 1.1; Prothrombin Time 12.9 Seconds (9.4-12.1)
[2020-06-28 09:28] LABS: Basophils # 0.1 K/mcL (0.0-0.2); Basophils % 0.6 %; Eosinophils # 1.1 K/mcL (0.0-0.6); Eosinophils % 13.1 %; Hematocrit 33.7 % (37.5-50.1); Hemoglobin 10.1 g/dL (12.9-16.9); Immature Granulocytes % 0.6 % (0-4); Lymphocytes # 2.5 K/mcL (0.6-4.6); Lymphocytes % 30.5 %; Mean Corpuscular Hemoglobin 28.6 pg (28.0-33.3); Mean Corpuscular Volume 95.5 fL (83.0-100.0); Mean Platelet Volume 12.7 fL (9.4-12.4); Monocytes # 0.6 K/mcL (0.0-1.3); Neutrophils # 3.9 K/mcL (1.6-8.9); Nucleated Red Blood Cells 0.2 /100 WBC (0); Platelet Count 169 K/mcL (140-400); Red Blood Count 3.53 M/mcL (4.19-5.50); Segmented Neutrophils % 48.2 %
[2020-06-28 09:29] LABS: Activated Partial Thrombo Time 75.5 Seconds (26.0-36.0)
[2020-06-28 09:38] LABS: Calcium 9.9 mg/dL (8.6-10.3); Potassium 4.1 mEq/L (3.5-5.1)
[2020-06-28] MEDS ORDERED: *HR* Labetalol 20 MG/4 ML SYRINGE IVP PRN (09:39)
[2020-06-28 09:46] LABS: Troponin I 0.05 ng/mL (< 0.04)
[2020-06-28] MEDS ORDERED: *HR* LORazepam 2 MG/ML VIAL IVP ONE (10:01)
[2020-06-28] MEDS: predniSONE 20 MG TABLET PO SCH (17:15)
[2020-06-28] MEDS: Heparin 25,000UNIT/250ML 1/2NS 25,000 UNIT/250 ML IV.SOLN IVC SCH (17:17)
[2020-06-28] MEDS: Artificial Tears SOLN 15 ML BOTTLE RIGHT EYE SCH ×2 (17:17→21:52)
[2020-06-28] MEDS ORDERED: *HR* Warfarin 5 MG TABLET PO ONE (18:00)
[2020-06-28] MEDS: amLODIPine 5 MG TABLET PO SCH (21:51)
[2020-06-28] MEDS: Lacri-Lube 3.5 GM TUBE RIGHT EYE SCH (21:52)
[2020-06-29 03:25] LABS: INR 1.1; Prothrombin Time 13.1 Seconds (9.4-12.1)
[2020-06-29 03:35] LABS: Basophils % 0.3 %; Red Cell Distribution Width 14.6 % (11.5-14.5)
[2020-06-29 03:37] LABS: Eosinophils % 0.5 %; Hematocrit 32.1 % (37.5-50.1); Hemoglobin 9.9 g/dL (12.9-16.9); Immature Granulocytes % 0.9 % (0-4); Immature Platelets 12.6 % (1.1-6.1); Lymphocytes # 1.3 K/mcL (0.6-4.6); Lymphocytes % 19.4 %; Mean Corpuscular HGB Conc 30.8 g/dL (31.6-35.5); Mean Corpuscular Hemoglobin 29.2 pg (28.0-33.3); Mean Corpuscular Volume 94.7 fL (83.0-100.0); Mean Platelet Volume 12.9 fL (9.4-12.4); Monocytes # 0.1 K/mcL (0.0-1.3); Monocytes % 1.5 %; Nucleated Red Blood Cells 0.5 /100 WBC (0); Platelet Count 161 K/mcL (140-400); Red Blood Count 3.39 M/mcL (4.19-5.50); Segmented Neutrophils % 77.4 %; White Blood Count 6.5 K/mcL (4.3-11.1)
[2020-06-29 03:46] LABS: Calcium 9.5 mg/dL (8.6-10.3); Potassium 4.5 mEq/L (3.5-5.1)
[2020-06-29] MEDS: Levalbuterol Neb 0.63 MG/3 ML IH SCH ×2 (03:52→09:37)
[2020-06-29] MEDS ORDERED: Levalbuterol Neb 0.63 MG/3 ML IH PRN (09:44)
[2020-06-29] MEDS: carvediloL 25 MG TABLET PO SCH ×2 (09:45→16:17)
[2020-06-29] MEDS: Aspirin Enteric Coated 81 MG Tablet PO SCH (09:46)
[2020-06-29] MEDS: predniSONE 20 MG TABLET PO SCH (09:46)
[2020-06-29] MEDS: Artificial Tears SOLN 15 ML BOTTLE RIGHT EYE SCH ×4 (09:47→21:24)
[2020-06-29] MEDS: Insulin LISPRO 300 UNITS/3 ML VIAL SQ SCH ×4 (09:48→21:25)
[2020-06-29] MEDS: *HR* Acetylcysteine 20% 600 MG/3 ML ORAL SYRINGE PO SCH ×3 (09:49→16:23)
[2020-06-29] MEDS: Acyclovir 200 MG CAPSULE PO SCH ×3 (09:58→21:23)
[2020-06-29] MEDS: Insulin DETEMIR 100 UNIT/ML X5UNITS SQ SCH (12:14)
[2020-06-29] MEDS ORDERED: *HR* Warfarin 5 MG TABLET PO ONE (18:00)
[2020-06-29] MEDS: amLODIPine 5 MG TABLET PO SCH (21:22)
[2020-06-29] MEDS: Lacri-Lube 3.5 GM TUBE RIGHT EYE SCH (21:24)
[2020-06-29] MEDS: Heparin 25,000UNIT/250ML 1/2NS 25,000 UNIT/250 ML IV.SOLN IVC SCH (23:41)
[2020-06-30 04:05] LABS: Basophils % 0.2 %; Hematocrit 30.7 % (37.5-50.1); Hemoglobin 9.6 g/dL (12.9-16.9); Immature Granulocytes % 1.5 % (0-4); Lymphocytes # 2.2 K/mcL (0.6-4.6); Lymphocytes % 19.9 %; Mean Corpuscular HGB Conc 31.3 g/dL (31.6-35.5); Mean Corpuscular Hemoglobin 29.3 pg (28.0-33.3); Mean Corpuscular Volume 93.6 fL (83.0-100.0); Monocytes # 0.7 K/mcL (0.0-1.3); Monocytes % 6.3 %; Neutrophils # 7.8 K/mcL (1.6-8.9); Nucleated Red Blood Cells 0.4 /100 WBC (0); Platelet Count 169 K/mcL (140-400); Red Blood Count 3.28 M/mcL (4.19-5.50); Red Cell Distribution Width 14.7 % (11.5-14.5); Segmented Neutrophils % 72.1 %; White Blood Count 10.8 K/mcL (4.3-11.1)
[2020-06-30 04:07] LABS: INR 1.3; Prothrombin Time 14.9 Seconds (9.4-12.1)
[2020-06-30 04:19] LABS: Calcium 9.7 mg/dL (8.6-10.3); Potassium 4.2 mEq/L (3.5-5.1)
[2020-06-30] MEDS: predniSONE 20 MG TABLET PO SCH (08:15)
[2020-06-30] MEDS: Acyclovir 200 MG CAPSULE PO SCH ×3 (08:15→20:05)
[2020-06-30] MEDS: Aspirin Enteric Coated 81 MG Tablet PO SCH (08:15)
[2020-06-30] MEDS: Insulin DETEMIR 100 UNIT/ML X5UNITS SQ SCH ×2 (08:16→20:07)
[2020-06-30] MEDS: *HR* Acetylcysteine 20% 600 MG/3 ML ORAL SYRINGE PO SCH ×3 (08:16→15:41)
[2020-06-30] MEDS: carvediloL 25 MG TABLET PO SCH ×2 (08:16→15:41)
[2020-06-30] MEDS: Artificial Tears SOLN 15 ML BOTTLE RIGHT EYE SCH ×4 (08:17→20:07)
[2020-06-30] MEDS: Insulin LISPRO 300 UNITS/3 ML VIAL SQ SCH ×4 (08:18→20:07)
[2020-06-30] MEDS ORDERED: *HR* Warfarin 5 MG TABLET PO ONE (18:00)
[2020-06-30] MEDS: amLODIPine 5 MG TABLET PO SCH (20:06)
[2020-06-30] MEDS: Lacri-Lube 3.5 GM TUBE RIGHT EYE SCH (20:07)
[2020-07-01 07:10] LABS: Basophils % 0.3 %; Eosinophils % 0.3 %; Hematocrit 31.5 % (37.5-50.1); Hemoglobin 9.9 g/dL (12.9-16.9); Immature Granulocytes % 1.2 % (0-4); Lymphocytes # 2.4 K/mcL (0.6-4.6); Lymphocytes % 24.6 %; Mean Corpuscular HGB Conc 31.4 g/dL (31.6-35.5); Mean Corpuscular Hemoglobin 29.2 pg (28.0-33.3); Mean Corpuscular Volume 92.9 fL (83.0-100.0); Mean Platelet Volume 12.5 fL (9.4-12.4); Monocytes # 0.7 K/mcL (0.0-1.3); Monocytes % 6.8 %; Neutrophils # 6.6 K/mcL (1.6-8.9); Nucleated Red Blood Cells 0.2 /100 WBC (0); Platelet Count 168 K/mcL (140-400); Red Blood Count 3.39 M/mcL (4.19-5.50); Red Cell Distribution Width 14.6 % (11.5-14.5); Segmented Neutrophils % 66.8 %; White Blood Count 9.8 K/mcL (4.3-11.1)
[2020-07-01 07:16] LABS: INR 1.5; Prothrombin Time 17.3 Seconds (9.4-12.1)
[2020-07-01 07:27] LABS: Calcium 9.4 mg/dL (8.6-10.3); Potassium 4.1 mEq/L (3.5-5.1)
[2020-07-01] MEDS: Aspirin Enteric Coated 81 MG Tablet PO SCH (07:43)
[2020-07-01] MEDS: predniSONE 20 MG TABLET PO SCH (07:43)
[2020-07-01] MEDS: *HR* Acetylcysteine 20% 600 MG/3 ML ORAL SYRINGE PO SCH ×3 (07:44→16:33)
[2020-07-01] MEDS: Acyclovir 200 MG CAPSULE PO SCH ×3 (07:44→21:57)
[2020-07-01] MEDS: carvediloL 25 MG TABLET PO SCH ×2 (07:45→16:33)
[2020-07-01] MEDS: Insulin LISPRO 300 UNITS/3 ML VIAL SQ SCH ×4 (07:46→21:56)
[2020-07-01] MEDS: Artificial Tears SOLN 15 ML BOTTLE RIGHT EYE SCH ×4 (07:47→21:52)
[2020-07-01] MEDS: Insulin DETEMIR 100 UNIT/ML X5UNITS SQ SCH ×2 (07:51→21:49)
[2020-07-01] MEDS ORDERED: Insulin DETEMIR 100 UNIT/ML X5UNITS SQ ONE (11:59)
[2020-07-01] MEDS: Heparin 25,000UNIT/250ML 1/2NS 25,000 UNIT/250 ML IV.SOLN IVC SCH (12:53)
[2020-07-01] MEDS ORDERED: *HR* Warfarin 3 MG TABLET PO ONE (18:00)
[2020-07-01] MEDS: amLODIPine 5 MG TABLET PO SCH (21:51)
[2020-07-01] MEDS: Lacri-Lube 3.5 GM TUBE RIGHT EYE SCH (21:53)
[2020-07-02 03:31] LABS: Basophils % 0.2 %; Eosinophils % 0.3 %; Hematocrit 30.7 % (37.5-50.1); Hemoglobin 9.9 g/dL (12.9-16.9); Immature Granulocytes % 2.2 % (0-4); Lymphocytes # 2.6 K/mcL (0.6-4.6); Lymphocytes % 27.3 %; Mean Corpuscular HGB Conc 32.2 g/dL (31.6-35.5); Mean Corpuscular Hemoglobin 29.1 pg (28.0-33.3); Mean Corpuscular Volume 90.3 fL (83.0-100.0); Mean Platelet Volume 12.9 fL (9.4-12.4); Monocytes # 0.7 K/mcL (0.0-1.3); Monocytes % 7.3 %; Nucleated Red Blood Cells 0.4 /100 WBC (0); Platelet Count 175 K/mcL (140-400); Red Cell Distribution Width 14.7 % (11.5-14.5); Segmented Neutrophils % 62.7 %; White Blood Count 9.6 K/mcL (4.3-11.1)
[2020-07-02 03:37] LABS: INR 1.6
[2020-07-02 03:51] LABS: Calcium 9.1 mg/dL (8.6-10.3); Potassium 4.3 mEq/L (3.5-5.1)
[2020-07-02] MEDS: Aspirin Enteric Coated 81 MG Tablet PO SCH (07:40)
[2020-07-02] MEDS: predniSONE 20 MG TABLET PO SCH (07:40)
[2020-07-02] MEDS: carvediloL 25 MG TABLET PO SCH ×2 (07:40→17:13)
[2020-07-02] MEDS: Acyclovir 200 MG CAPSULE PO SCH ×3 (07:41→20:30)
[2020-07-02] MEDS: *HR* Acetylcysteine 20% 600 MG/3 ML ORAL SYRINGE PO SCH ×3 (07:41→17:13)
[2020-07-02] MEDS: Insulin LISPRO 300 UNITS/3 ML VIAL SQ SCH ×5 (07:41→20:31)
[2020-07-02] MEDS: Artificial Tears SOLN 15 ML BOTTLE RIGHT EYE SCH ×4 (07:42→20:30)
[2020-07-02] MEDS: Insulin DETEMIR 100 UNIT/ML X5UNITS SQ SCH ×2 (07:46→20:32)
[2020-07-02] MEDS: Heparin 25,000UNIT/250ML 1/2NS 25,000 UNIT/250 ML IV.SOLN IVC SCH ×2 (14:43→14:44)
[2020-07-02] MEDS ORDERED: Insulin LISPRO 300 UNITS/3 ML VIAL SQ SCH (17:02)
[2020-07-02] MEDS ORDERED: *HR* Warfarin 7.5 MG TABLET PO ONE (18:00)
[2020-07-02] MEDS: amLODIPine 5 MG TABLET PO SCH (20:30)
[2020-07-02] MEDS: Lacri-Lube 3.5 GM TUBE RIGHT EYE SCH (20:31)
[2020-07-03 04:43] LABS: INR 1.8; Prothrombin Time 20.9 Seconds (9.4-12.1)
[2020-07-03 04:44] LABS: Basophils % 0.2 %
[2020-07-03 04:46] LABS: Eosinophils # 0.1 K/mcL (0.0-0.6); Hematocrit 31.1 % (37.5-50.1); Immature Granulocytes % 1.6 % (0-4); Immature Platelets 11.5 % (1.1-6.1); Lymphocytes # 2.6 K/mcL (0.6-4.6); Lymphocytes % 27.7 %; Mean Corpuscular HGB Conc 32.2 g/dL (31.6-35.5); Mean Corpuscular Hemoglobin 30.3 pg (28.0-33.3); Mean Corpuscular Volume 94.2 fL (83.0-100.0); Mean Platelet Volume 12.8 fL (9.4-12.4); Monocytes # 0.7 K/mcL (0.0-1.3); Neutrophils # 5.7 K/mcL (1.6-8.9); Nucleated Red Blood Cells 0.8 /100 WBC (0); Platelet Count 170 K/mcL (140-400); Red Cell Distribution Width 14.7 % (11.5-14.5); Segmented Neutrophils % 61.5 %; White Blood Count 9.3 K/mcL (4.3-11.1)
[2020-07-03] MEDS: Heparin 25,000UNIT/250ML 1/2NS 25,000 UNIT/250 ML IV.SOLN IVC SCH ×2 (04:51→20:00)
[2020-07-03 04:57] LABS: Potassium 4.2 mEq/L (3.5-5.1)
[2020-07-03] MEDS: carvediloL 25 MG TABLET PO SCH ×2 (09:47→17:49)
[2020-07-03] MEDS: Acyclovir 200 MG CAPSULE PO SCH ×3 (09:48→20:31)
[2020-07-03] MEDS: Artificial Tears SOLN 15 ML BOTTLE RIGHT EYE SCH ×4 (09:48→20:33)
[2020-07-03] MEDS: Aspirin Enteric Coated 81 MG Tablet PO SCH (09:48)
[2020-07-03] MEDS: Bumetanide 1 MG TABLET PO SCH (09:48)
[2020-07-03] MEDS: predniSONE 20 MG TABLET PO SCH (09:48)
[2020-07-03] MEDS: Insulin DETEMIR 100 UNIT/ML X5UNITS SQ SCH ×2 (09:49→20:32)
[2020-07-03] MEDS: *HR* Acetylcysteine 20% 600 MG/3 ML ORAL SYRINGE PO SCH ×3 (09:49→17:49)
[2020-07-03] MEDS: Insulin LISPRO 300 UNITS/3 ML VIAL SQ SCH ×4 (09:49→20:31)
[2020-07-03] MEDS ORDERED: Insulin LISPRO 300 UNITS/3 ML VIAL SQ ONE (17:10)
[2020-07-03] MEDS ORDERED: *HR* Warfarin 7.5 MG TABLET PO ONE (18:00)
[2020-07-03] MEDS: amLODIPine 5 MG TABLET PO SCH (20:31)
[2020-07-03] MEDS: Lacri-Lube 3.5 GM TUBE RIGHT EYE SCH (20:32)
[2020-07-04 03:15] LABS: Eosinophils % 0.2 %; Nucleated Red Blood Cells 0.5 /100 WBC (0)
[2020-07-04 03:17] LABS: Basophils % 0.2 %; Hematocrit 31.9 % (37.5-50.1); Hemoglobin 10.1 g/dL (12.9-16.9); Immature Granulocytes % 1.7 % (0-4); Lymphocytes # 2.4 K/mcL (0.6-4.6); Lymphocytes % 23.6 %; Mean Corpuscular HGB Conc 31.7 g/dL (31.6-35.5); Mean Corpuscular Hemoglobin 29.2 pg (28.0-33.3); Mean Corpuscular Volume 92.2 fL (83.0-100.0); Mean Platelet Volume 13.1 fL (9.4-12.4); Monocytes # 0.6 K/mcL (0.0-1.3); Monocytes % 6.2 %; Platelet Count 167 K/mcL (140-400); Red Blood Count 3.46 M/mcL (4.19-5.50); Red Cell Distribution Width 14.8 % (11.5-14.5); Segmented Neutrophils % 68.1 %; White Blood Count 10.2 K/mcL (4.3-11.1)
[2020-07-04 03:24] LABS: INR 2.2; Prothrombin Time 24.5 Seconds (9.4-12.1)
[2020-07-04 03:32] LABS: Calcium 8.9 mg/dL (8.6-10.3); Potassium 4.7 mEq/L (3.5-5.1)
[2020-07-04 07:16] VITALS: BP 167/74
[2020-07-04] MEDS: carvediloL 25 MG TABLET PO SCH (07:36)
[2020-07-04] MEDS: Acyclovir 200 MG CAPSULE PO SCH (07:36)
[2020-07-04] MEDS: Bumetanide 1 MG TABLET PO SCH (07:36)
[2020-07-04] MEDS: *HR* Acetylcysteine 20% 600 MG/3 ML ORAL SYRINGE PO SCH (07:36)
[2020-07-04] MEDS: Aspirin Enteric Coated 81 MG Tablet PO SCH (07:36)
[2020-07-04] MEDS: Insulin LISPRO 300 UNITS/3 ML VIAL SQ SCH (07:37)
[2020-07-04] MEDS: Artificial Tears SOLN 15 ML BOTTLE RIGHT EYE SCH (07:37)
[2020-07-04] MEDS: Insulin DETEMIR 100 UNIT/ML X5UNITS SQ SCH (07:43)
== END 2020-07-04 12:41 | DRG 637 ==
LOC: 2ANU → SUATTDRO 15:43
PROVIDERS: ADMIT Internal Medicine; ATTEND Family Medicine

== ENCOUNTER 2020-09-10 13:50 | Inpatient (IN) ==
[2020-09-10 15:03] LABS: Basophils % 0.3 %; Hemoglobin 11.6 g/dL (12.9-16.9); Immature Granulocytes % 0.4 % (0-4); Mean Corpuscular Hemoglobin 29.7 pg (28.0-33.3); Mean Corpuscular Volume 98.2 fL (83.0-100.0); Red Cell Distribution Width 14.6 % (11.5-14.5)
[2020-09-10 15:06] LABS: Eosinophils # 0.8 K/mcL (0.0-0.6); Eosinophils % 12.2 %; Hematocrit 38.4 % (37.5-50.1); Lymphocytes # 1.5 K/mcL (0.6-4.6); Mean Corpuscular HGB Conc 30.2 g/dL (31.6-35.5); Mean Platelet Volume 12.9 fL (9.4-12.4); Monocytes # 0.5 K/mcL (0.0-1.3); Monocytes % 7.6 %; Neutrophils # 3.9 K/mcL (1.6-8.9); Platelet Count 136 K/mcL (140-400); Red Blood Count 3.91 M/mcL (4.19-5.50); Segmented Neutrophils % 57.5 %; White Blood Count 6.7 K/mcL (4.3-11.1)
[2020-09-10] MEDS ORDERED: Morphine Sulfate 2 MG/ML SYRINGE IVP STA (15:15)
[2020-09-10 15:19] LABS: INR 1.3; Prothrombin Time 15.4 Seconds (9.4-12.1)
[2020-09-10 15:22] LABS: Activated Partial Thrombo Time 28.3 Seconds (26.0-36.0)
[2020-09-10 15:37] LABS: Potassium 4.2 mEq/L (3.5-5.1); Troponin I 0.07 ng/mL (< 0.04)
[2020-09-10] MEDS ORDERED: Ketorolac 15 MG/ML VIAL IVP ONE (16:16)
[2020-09-10 16:28] LABS: Adenovirus Not Detected (Not Detect); Coronavirus 229E Not Detected (Not Detect); Coronavirus HKU1 Not Detected (Not Detect); Coronavirus NL63 Not Detected (Not Detect); Coronavirus OC43 Not Detected (Not Detect)
[2020-09-10 16:29] LABS: Bordetella Pertussis Not Detected (Not Detect); Human Metapneumovirus Not Detected (Not Detect); Human Rhinovirus/Enterovirus Not Detected (Not Detect); Influenza A Subtype 2009 H1 Not Detected (Not Detect); Influenza B Not Detected (Not Detect); Parainfluenza Virus 1 Not Detected (Not Detect); Parainfluenza Virus 2 Not Detected (Not Detect); Parainfluenza Virus 3 Not Detected (Not Detect); Parainfluenza Virus 4 Not Detected (Not Detect); Respiratory Syncytial Virus Not Detected (Not Detect); SARS-CoV-2 DETECTED (Not Detect)
[2020-09-10 16:30] LABS: Chlamydophila pneumoniae Not Detected (Not Detect); Mycoplasma pneumoniae Not Detected (Not Detect)
[2020-09-10] MEDS ORDERED: Aspirin 325 MG TABLET PO ONE (16:30)
[2020-09-10] MEDS ORDERED: Naloxone 0.4 MG/ML INJ IVP PRN (17:57)
[2020-09-10] MEDS ORDERED: Ondansetron 4 MG/2 ML VIAL IVP PRN (17:57)
[2020-09-10] MEDS ORDERED: *HR* Dextrose 50 % in Water (Vial) 50 ML VIAL IVP PRN (18:09)
[2020-09-10] MEDS ORDERED: Dextrose Gel 15 GM/37.5 ML TUBE PO PRN ×2 (18:09)
[2020-09-10] MEDS ORDERED: D5% in Water 1,000 ML IVC PRN (18:09)
[2020-09-10] MEDS ORDERED: *HR* OxyCODONE Immed Rel 5 MG TABLET PO PRN (18:54)
[2020-09-10] MEDS ORDERED: Vancomycin 1,750 MG in 0.9 % Sodium Chloride 250 ML IVPB SCH (19:00)
[2020-09-10] MEDS ORDERED: 0.9 % Sodium Chloride 1,000 ML IVC SCH (19:15)
[2020-09-10] MEDS ORDERED: Vancomycin 1,750 MG/517.5 ML IV.SOLN IVPB ONE (20:00)
[2020-09-10 20:18] LABS: Bilirubin,Urine Negative (Negative); Blood,Urine Negative (Negative); Clarity,Urine Clear (Clear); Color,Urine Light-Yellow (Yellow); Glucose,Urine (UA) Normal (Normal); Hyaline Casts,Urine Few per lpf (None Seen); Ketones,Urine Negative (Negative); Leukocyte Esterase,Urine Negative (Negative); Mucus,Urine Few per lpf (None-Few); Nitrite,Urine Negative (Negative); PH,Urine 5.5 pH Units (5.0-8.0); Protein,Urine 30 mg/dL (Neg-Trace); RBC,Urine 0-3 per hpf (0-3); Specific Gravity,Urine 1.015 (1.010-1.025); Urobilinogen,Urine Normal (Normal); WBC,Urine 0-3 per hpf (0-3)
[2020-09-10 20:26] LABS: Creatinine,Urine 109 mg/dL
[2020-09-11] MEDS: Insulin LISPRO 300 UNITS/3 ML VIAL SUBQ SCH ×5 (01:36→21:22)
[2020-09-11] MEDS ORDERED: *HR* Metoprolol 5 MG/5 ML VIAL IVP ONE ×2 (01:38→04:57)
[2020-09-11 02:20] LABS: Basophils % 0.2 %; Eosinophils # 0.7 K/mcL (0.0-0.6); Eosinophils % 12.9 %; Hemoglobin 11.4 g/dL (12.9-16.9); Immature Granulocytes % 0.2 % (0-4); Lymphocytes # 1.6 K/mcL (0.6-4.6); Lymphocytes % 29.3 %; Mean Corpuscular Hemoglobin 29.3 pg (28.0-33.3); Mean Corpuscular Volume 97.7 fL (83.0-100.0); Monocytes # 0.5 K/mcL (0.0-1.3); Monocytes % 8.8 %; Neutrophils # 2.6 K/mcL (1.6-8.9); Platelet Count 132 K/mcL (140-400); Red Blood Count 3.89 M/mcL (4.19-5.50); Red Cell Distribution Width 14.6 % (11.5-14.5); Segmented Neutrophils % 48.6 %; White Blood Count 5.3 K/mcL (4.3-11.1)
[2020-09-11 02:32] LABS: INR 1.3; Prothrombin Time 15.3 Seconds (9.4-12.1)
[2020-09-11 02:46] LABS: Albumin 3.2 g/dL (3.5-5.7); Albumin/Globulin Ratio 1.1 (1.1-2.2); Bilirubin,Direct 0.1 mg/dL (0.0-0.2); Bilirubin,Indirect 0.2 mg/dL (0.0-1.0); Bilirubin,Total 0.3 mg/dL (0.3-1.0); Calcium 8.5 mg/dL (8.6-10.3); Globulin 2.9 g/dL (2.4-3.5); Total Protein 6.1 g/dL (6.4-8.9)
[2020-09-11] MEDS: Piperacillin/Tazobactam 3.375 GM in 0.9 % Sodium Chloride Mini Bag 100 ML IVPB SCH ×2 (05:13→18:26)
[2020-09-11] MEDS ORDERED: Vancomycin 1,500 MG/265 ML IV.SOLN IVPB SCH (20:00)
[2020-09-12] MEDS ORDERED: *HR* Warfarin 1 MG TABLET PO ONE (01:45)
[2020-09-12] MEDS: Piperacillin/Tazobactam 3.375 GM in 0.9 % Sodium Chloride Mini Bag 100 ML IVPB SCH (05:41)
[2020-09-12 08:04] LABS: Basophils % 0.2 %; Hematocrit 39.3 % (37.5-50.1); Hemoglobin 12.1 g/dL (12.9-16.9); Immature Granulocytes % 0.6 % (0-4); Lymphocytes # 0.8 K/mcL (0.6-4.6); Lymphocytes % 16.6 %; Mean Corpuscular HGB Conc 30.8 g/dL (31.6-35.5); Mean Corpuscular Hemoglobin 30.3 pg (28.0-33.3); Mean Corpuscular Volume 98.3 fL (83.0-100.0); Mean Platelet Volume 12.7 fL (9.4-12.4); Monocytes # 0.1 K/mcL (0.0-1.3); Monocytes % 2.9 %; Neutrophils # 3.9 K/mcL (1.6-8.9); Platelet Count 135 K/mcL (140-400); Red Cell Distribution Width 14.1 % (11.5-14.5); Segmented Neutrophils % 79.7 %; White Blood Count 4.9 K/mcL (4.3-11.1)
[2020-09-12 08:18] LABS: INR 1.2; Prothrombin Time 14.2 Seconds (9.4-12.1)
[2020-09-12 08:26] LABS: Albumin 3.5 g/dL (3.5-5.7); Albumin/Globulin Ratio 1.1 (1.1-2.2); Bilirubin,Direct 0.1 mg/dL (0.0-0.2); Bilirubin,Indirect 0.3 mg/dL (0.0-1.0); Bilirubin,Total 0.4 mg/dL (0.3-1.0); Calcium 9.2 mg/dL (8.6-10.3); Globulin 3.2 g/dL (2.4-3.5); Potassium 4.6 mEq/L (3.5-5.1); Total Protein 6.7 g/dL (6.4-8.9)
[2020-09-12] MEDS: Insulin LISPRO 300 UNITS/3 ML VIAL SUBQ SCH ×2 (09:14→12:59)
[2020-09-12] MEDS ORDERED: Warfarin perPT PO PRN (11:58)
[2020-09-12 12:20] VITALS: BP 144/52
[2020-09-12] MEDS ORDERED: Piperacillin/Tazobactam 3.375 GM in 0.9 % Sodium Chloride Mini Bag 100 ML IVPB SCH (15:00)
[2020-09-12] MEDS ORDERED: *HR* Warfarin 5 MG TABLET PO SCH (18:00)
[2020-09-12] MEDS ORDERED: *HR* Warfarin 3 MG TABLET PO ONE (18:00)
[2020-09-14] MEDS ORDERED: *HR* Warfarin 1 MG TABLET PO SCH (18:00)
== END 2020-09-12 15:34 | disposition home health service (06) | DRG 177 ==
LOC: EMEROOARM 13:50 → CDU 13:50 → SUATTDRO 16:56 → CDU 18:50 → 3NENU 09-12 11:24
PROVIDERS: ADMIT Internal Medicine; ATTEND Student in an Organized Health Care Education/Training Program

== ENCOUNTER 2020-09-16 19:19 | Inpatient (IN) ==
[2020-09-16 20:09] LABS: Basophils % 0.1 %
[2020-09-16 20:11] LABS: Hematocrit 37.5 % (37.5-50.1); Hemoglobin 11.8 g/dL (12.9-16.9); Immature Granulocytes % 0.8 % (0-4); Immature Platelets 14.6 % (1.1-6.1); Lymphocytes # 0.9 K/mcL (0.6-4.6); Lymphocytes % 6.7 %; Mean Corpuscular HGB Conc 31.5 g/dL (31.6-35.5); Mean Corpuscular Hemoglobin 29.6 pg (28.0-33.3); Mean Platelet Volume 13.6 fL (9.4-12.4); Monocytes # 0.3 K/mcL (0.0-1.3); Monocytes % 2.1 %; Neutrophils # 11.8 K/mcL (1.6-8.9); Nucleated Red Blood Cells 0.2 /100 WBC (0); Platelet Count 145 K/mcL (140-400); Red Blood Count 3.99 M/mcL (4.19-5.50); Red Cell Distribution Width 13.9 % (11.5-14.5); Segmented Neutrophils % 90.3 %; White Blood Count 13.1 K/mcL (4.3-11.1)
[2020-09-16 20:21] LABS: INR 1.6; Prothrombin Time 18.7 Seconds (9.4-12.1)
[2020-09-16 20:25] LABS: Large Platelets Present (Not Present); Polychromasia 1+ (Not Present)
[2020-09-16 20:26] LABS: Basophilic Stippling 1+ (Not Present)
[2020-09-16 20:28] LABS: Calcium 8.7 mg/dL (8.6-10.3)
[2020-09-16 20:33] LABS: Troponin I 0.06 ng/mL (< 0.04)
[2020-09-16] MEDS ORDERED: Cefepime HCl 1,000 MG in 0.9 % Sodium Chloride Mini Bag 100 ML IVPB STA (20:57)
[2020-09-16] MEDS ORDERED: Azithromycin 500 MG in 0.9 % Sodium Chloride 250 ML IVPB ONE (20:57)
[2020-09-16] MEDS ORDERED: Naloxone 0.4 MG/ML INJ IVP PRN (23:02)
[2020-09-16] MEDS ORDERED: Ondansetron 4 MG/2 ML VIAL IVP PRN (23:02)
[2020-09-16] MEDS ORDERED: Dextrose Gel 15 GM/37.5 ML TUBE PO PRN ×2 (23:08)
[2020-09-16] MEDS ORDERED: *HR* Dextrose 50 % in Water (Vial) 50 ML VIAL IVP PRN (23:08)
[2020-09-16] MEDS ORDERED: D5% in Water 1,000 ML IVC PRN (23:08)
[2020-09-17 05:11] LABS: Eosinophils % 0.1 %; Monocytes % 1.9 %; Nucleated Red Blood Cells 0.2 /100 WBC (0); Red Cell Distribution Width 14.1 % (11.5-14.5)
[2020-09-17 05:13] LABS: Basophils % 0.2 %; Hematocrit 38.3 % (37.5-50.1); Immature Granulocytes % 0.9 % (0-4); Immature Platelets 12.8 % (1.1-6.1); Lymphocytes % 9.2 %; Mean Corpuscular HGB Conc 31.3 g/dL (31.6-35.5); Mean Corpuscular Hemoglobin 29.4 pg (28.0-33.3); Mean Corpuscular Volume 93.9 fL (83.0-100.0); Mean Platelet Volume 12.8 fL (9.4-12.4); Monocytes # 0.2 K/mcL (0.0-1.3); Neutrophils # 9.7 K/mcL (1.6-8.9); Platelet Count 139 K/mcL (140-400); Red Blood Count 4.08 M/mcL (4.19-5.50); Segmented Neutrophils % 87.7 %; White Blood Count 11.1 K/mcL (4.3-11.1)
[2020-09-17 05:23] LABS: Activated Partial Thrombo Time 27.7 Seconds (26.0-36.0); INR 1.7
[2020-09-17 05:31] LABS: Albumin/Globulin Ratio 0.9 (1.1-2.2); Bilirubin,Total 0.5 mg/dL (0.3-1.0); Calcium 8.7 mg/dL (8.6-10.3); Globulin 3.4 g/dL (2.4-3.5); Magnesium 1.8 mg/dL (1.6-2.6); Potassium 3.6 mEq/L (3.5-5.1); Total Protein 6.4 g/dL (6.4-8.9)
[2020-09-17 05:43] LABS: Troponin I 0.07 ng/mL (< 0.04)
[2020-09-17] MEDS ORDERED: Vancomycin 1,750 MG/517.5 ML IV.SOLN IVPB ONE (07:00)
[2020-09-17] MEDS: Cefepime HCl 2,000 MG in Water for inj. (sterile) 20 ML IVP SCH ×2 (07:37→19:27)
[2020-09-17] MEDS: Insulin LISPRO 300 UNITS/3 ML VIAL SUBQ SCH ×4 (07:38→20:05)
[2020-09-17] MEDS ORDERED: Warfarin perPT PO PRN (18:00)
[2020-09-17] MEDS ORDERED: *HR* Warfarin 5 MG TABLET PO ONE (18:00)
[2020-09-17] MEDS: Acetaminophen 325 MG TABLET PO PRN (19:27)
[2020-09-17] MEDS ORDERED: Sennosides/Docusate Sodium TABLET PO PRN (20:20)
[2020-09-17] MEDS ORDERED: Ipratropium 1 PUFF INHALER IH PRN (20:20)
[2020-09-17] MEDS ORDERED: Colchicine 0.6 MG TABLET PO PRN (20:20)
[2020-09-17] MEDS ORDERED: *HR* OxyCODONE Immed Rel 5 MG TABLET PO PRN (20:20)
[2020-09-17] MEDS: carvediloL 25 MG TABLET PO SCH (22:07)
[2020-09-17] MEDS: amLODIPine 5 MG TABLET PO SCH (22:12)
[2020-09-17] MEDS: Ergocalciferol (VIT D2) 50,000 UNIT (1.25MG) CAP PO SCH (23:15)
[2020-09-18 05:18] LABS: INR 1.6; Prothrombin Time 18.3 Seconds (9.4-12.1)
[2020-09-18] MEDS ORDERED: Haloperidol Lactate 5 MG/ML VIAL IVP ONE (05:22)
[2020-09-18] MEDS ORDERED: Dexmedetomidine HCl 400 MCG/100 ML MLS IVC SCH (05:30)
[2020-09-18] MEDS ORDERED: Haloperidol Lactate 5 MG/ML VIAL IVP PRN (05:38)
[2020-09-18] MEDS: Vancomycin 1,250 MG/262.5 ML IV.SOLN IVPB SCH (06:06)
[2020-09-18] MEDS: Insulin LISPRO 300 UNITS/3 ML VIAL SUBQ SCH ×5 (07:32→19:59)
[2020-09-18] MEDS: Cefepime HCl 2,000 MG in Water for inj. (sterile) 20 ML IVP SCH ×3 (08:09→19:58)
[2020-09-18] MEDS: Aspirin Enteric Coated 81 MG Tablet PO SCH (08:09)
[2020-09-18] MEDS: carvediloL 25 MG TABLET PO SCH ×2 (08:09→17:56)
[2020-09-18] MEDS: allopurinoL 100 MG TABLET PO SCH (08:09)
[2020-09-18] MEDS: *HR* Acetylcysteine 20% 600 MG/3 ML ORAL SYRINGE PO SCH ×3 (08:46→17:55)
[2020-09-18] MEDS ORDERED: Insulin DETEMIR 100 UNIT/ML X5UNITS SUBQ SCH (09:00)
[2020-09-18] MEDS: DilTIAZem CD (24hr) 120 MG CAP.ER.24H PO SCH (10:17)
[2020-09-18] MEDS: Acetaminophen 325 MG TABLET PO PRN (12:05)
[2020-09-18] MEDS: Dexamethasone 4 MG/ML VIAL IVP SCH (12:06)
[2020-09-18] MEDS ORDERED: Bumetanide 1 MG/4 ML VIAL IVP SCH (14:00)
[2020-09-18 16:25] LABS: ABG Base Excess 0 mEq/L (-2 to 3); ABG HCO3 25 mEq/L (21-27); ABG Oxygen Saturation 95 % (95-98); ABG PCO2 41 mmHg (35-45); ABG PO2 76 mmHg (85-104); ABG TCO2 26 mEq/L (20-26)
[2020-09-18] MEDS ORDERED: *HR* Warfarin 3 MG TABLET PO ONE (18:00)
[2020-09-18] MEDS: amLODIPine 5 MG TABLET PO SCH (19:44)
[2020-09-19 02:54] LABS: INR 1.7; Prothrombin Time 19.8 Seconds (9.4-12.1)
[2020-09-19 02:59] LABS: Basophils % 0.1 %; Mean Platelet Volume 14.3 fL (9.4-12.4)
[2020-09-19 03:01] LABS: Hematocrit 36.3 % (37.5-50.1); Hemoglobin 11.5 g/dL (12.9-16.9); Immature Platelets 13.9 % (1.1-6.1); Lymphocytes # 0.6 K/mcL (0.6-4.6); Mean Corpuscular HGB Conc 31.7 g/dL (31.6-35.5); Mean Corpuscular Hemoglobin 30.7 pg (28.0-33.3); Mean Corpuscular Volume 96.8 fL (83.0-100.0); Monocytes # 0.1 K/mcL (0.0-1.3); Monocytes % 1.2 %; Platelet Count 134 K/mcL (140-400); Red Blood Count 3.75 M/mcL (4.19-5.50); Segmented Neutrophils % 90.7 %; White Blood Count 8.9 K/mcL (4.3-11.1)
[2020-09-19 03:06] LABS: Neutrophils # 8.1 K/mcL (1.6-8.9)
[2020-09-19 03:18] LABS: Alanine Aminotransferase 23 Units/L (7-52); Albumin 2.7 g/dL (3.5-5.7); Albumin/Globulin Ratio 0.8 (1.1-2.2); Alkaline Phosphatase 51 Units/L (34-104); Aspartate Amino Transferase 27 Units/L (13-39); BUN/Creatinine Ratio 25 (6-26); Bilirubin,Total 0.4 mg/dL (0.3-1.0); Blood Urea Nitrogen 71 mg/dL (8-23); Calcium 8.2 mg/dL (8.6-10.3); Carbon Dioxide 22 mEq/L (23-29); Chloride 103 mEq/L (98-107); Globulin 3.5 g/dL (2.4-3.5); Glucose 260 mg/dL (70-105); Lactate Dehydrogenase 361 Units/L (140-271); Osmolality,Calculated 316 (280-300); Phosphorous 3.9 mg/dL (2.7-4.5); Potassium 4.2 mEq/L (3.5-5.1); Sodium 138 mEq/L (136-145); Total Protein 6.2 g/dL (6.4-8.9); eGFR For African Americans 26 (> 60); eGFR For Non-African Americans 21 (> 60)
[2020-09-19] MEDS: Insulin LISPRO 300 UNITS/3 ML VIAL SUBQ SCH ×4 (03:24→20:23)
[2020-09-19 03:33] LABS: Ferritin > 1500 ng/mL (20-250)
[2020-09-19 03:40] LABS: Platelet Estimate Normal (Normal)
[2020-09-19] MEDS: Vancomycin 1,250 MG/262.5 ML IV.SOLN IVPB SCH (07:46)
[2020-09-19] MEDS: *HR* Acetylcysteine 20% 600 MG/3 ML ORAL SYRINGE PO SCH ×3 (07:46→17:09)
[2020-09-19] MEDS: Dexamethasone 4 MG/ML VIAL IVP SCH (07:47)
[2020-09-19] MEDS: Cefepime HCl 2,000 MG in Water for inj. (sterile) 20 ML IVP SCH ×2 (07:49→20:21)
[2020-09-19] MEDS: Aspirin Enteric Coated 81 MG Tablet PO SCH (07:49)
[2020-09-19] MEDS: DilTIAZem CD (24hr) 120 MG CAP.ER.24H PO SCH (07:50)
[2020-09-19] MEDS: carvediloL 25 MG TABLET PO SCH ×2 (07:50→17:08)
[2020-09-19] MEDS: allopurinoL 100 MG TABLET PO SCH (07:52)
[2020-09-19] MEDS: Acetaminophen 325 MG TABLET PO PRN (10:33)
[2020-09-19] MEDS ORDERED: *HR* Warfarin 5 MG TABLET PO ONE (18:00)
[2020-09-19] MEDS: amLODIPine 5 MG TABLET PO SCH (20:21)
[2020-09-19] MEDS: Insulin DETEMIR 100 UNIT/ML X5UNITS SUBQ SCH (20:23)
[2020-09-19] MEDS ORDERED: Insulin DETEMIR 100 UNIT/ML X5UNITS SUBQ SCH (21:00)
[2020-09-20] MEDS: Acetaminophen 325 MG TABLET PO PRN ×2 (04:07→20:30)
[2020-09-20 07:11] LABS: Basophils % 0.1 %; Nucleated Red Blood Cells 0.2 /100 WBC (0)
[2020-09-20 07:13] LABS: Hematocrit 36.1 % (37.5-50.1); Hemoglobin 11.4 g/dL (12.9-16.9); Immature Platelets 18.2 % (1.1-6.1); Lymphocytes # 0.6 K/mcL (0.6-4.6); Lymphocytes % 5.3 %; Mean Corpuscular HGB Conc 31.6 g/dL (31.6-35.5); Mean Corpuscular Hemoglobin 29.2 pg (28.0-33.3); Mean Corpuscular Volume 92.6 fL (83.0-100.0); Mean Platelet Volume 13.1 fL (9.4-12.4); Monocytes # 0.3 K/mcL (0.0-1.3); Monocytes % 2.5 %; Neutrophils # 10.7 K/mcL (1.6-8.9); Platelet Count 140 K/mcL (140-400); Segmented Neutrophils % 91.1 %; White Blood Count 11.7 K/mcL (4.3-11.1)
[2020-09-20 07:14] LABS: INR 2.7; Prothrombin Time 30.7 Seconds (9.4-12.1)
[2020-09-20 07:22] LABS: Calcium 8.6 mg/dL (8.6-10.3); Magnesium 2.4 mg/dL (1.6-2.6); Phosphorous 4.2 mg/dL (2.7-4.5); Potassium 4.3 mEq/L (3.5-5.1)
[2020-09-20 07:41] LABS: Platelet Estimate Slight Decrease (Normal); Toxic Granulation Present (Not Present)
[2020-09-20] MEDS: Insulin LISPRO 300 UNITS/3 ML VIAL SUBQ SCH ×5 (07:44→20:27)
[2020-09-20] MEDS: Cefepime HCl 2,000 MG in Water for inj. (sterile) 20 ML IVP SCH (07:50)
[2020-09-20] MEDS: DilTIAZem CD (24hr) 120 MG CAP.ER.24H PO SCH (07:51)
[2020-09-20] MEDS: carvediloL 25 MG TABLET PO SCH ×2 (07:51→17:06)
[2020-09-20] MEDS: allopurinoL 100 MG TABLET PO SCH (07:51)
[2020-09-20] MEDS: Aspirin Enteric Coated 81 MG Tablet PO SCH (07:52)
[2020-09-20] MEDS: *HR* Acetylcysteine 20% 600 MG/3 ML ORAL SYRINGE PO SCH ×3 (07:52→17:06)
[2020-09-20] MEDS: Dexamethasone 4 MG/ML VIAL IVP SCH (07:53)
[2020-09-20] MEDS: Insulin DETEMIR 100 UNIT/ML X5UNITS SUBQ SCH ×2 (07:55→20:27)
[2020-09-20] MEDS: amLODIPine 5 MG TABLET PO SCH (20:26)
[2020-09-21] MEDS: Insulin LISPRO 300 UNITS/3 ML VIAL SUBQ SCH ×4 (02:04→21:00)
[2020-09-21 02:39] LABS: INR 3.6; Prothrombin Time 40.7 Seconds (9.4-12.1)
[2020-09-21 02:54] LABS: Calcium 8.6 mg/dL (8.6-10.3); Magnesium 2.5 mg/dL (1.6-2.6); Phosphorous 3.9 mg/dL (2.7-4.5)
[2020-09-21 03:09] LABS: Fibrinogen 598 mg/dL (169-393)
[2020-09-21 03:11] LABS: D-Dimer 15625 ng/mLFEU (0-500)
[2020-09-21 05:37] LABS: Basophils % 0.2 %; Immature Granulocytes % 0.6 % (0-4); Nucleated Red Blood Cells 0.3 /100 WBC (0); Red Blood Count 4.23 M/mcL (4.19-5.50); Red Cell Distribution Width 13.8 % (11.5-14.5)
[2020-09-21 05:39] LABS: Hematocrit 39.2 % (37.5-50.1); Hemoglobin 12.5 g/dL (12.9-16.9); Lymphocytes # 0.6 K/mcL (0.6-4.6); Lymphocytes % 4.9 %; Mean Corpuscular HGB Conc 31.9 g/dL (31.6-35.5); Mean Corpuscular Hemoglobin 29.6 pg (28.0-33.3); Mean Corpuscular Volume 92.7 fL (83.0-100.0); Mean Platelet Volume 14.3 fL (9.4-12.4); Monocytes # 0.3 K/mcL (0.0-1.3); Platelet Count 142 K/mcL (140-400); Segmented Neutrophils % 92.3 %
[2020-09-21] MEDS: Cefepime HCl 1,000 MG in Water for inj. (sterile) 10 ML IVP SCH (08:06)
[2020-09-21] MEDS: Dexamethasone 4 MG/ML VIAL IVP SCH (08:07)
[2020-09-21] MEDS: Dexmedetomidine HCl 400 MCG/100 ML MLS IVC SCH ×2 (09:08→22:14)
[2020-09-21] MEDS: Insulin DETEMIR 100 UNIT/ML X5UNITS SUBQ SCH (09:11)
[2020-09-21] MEDS: *HR* Acetylcysteine 20% 600 MG/3 ML ORAL SYRINGE PO SCH ×3 (11:59→16:31)
[2020-09-21] MEDS: carvediloL 25 MG TABLET PO SCH (12:00)
[2020-09-21] MEDS: DilTIAZem CD (24hr) 120 MG CAP.ER.24H PO SCH (12:00)
[2020-09-21] MEDS: Aspirin Enteric Coated 81 MG Tablet PO SCH (12:00)
[2020-09-21] MEDS: allopurinoL 100 MG TABLET PO SCH (12:00)
[2020-09-21] MEDS ORDERED: Lidocaine/EPI 1:100k 1% 50 ML VIAL ONE (12:56)
[2020-09-21] MEDS ORDERED: Heparin 1,000 UNITS/500 mL 500 ML ONE (12:56)
[2020-09-21] MEDS ORDERED: *HR* Heparin 5,000 UNIT/ML VIAL ONE (13:35)
[2020-09-21] MEDS ORDERED: *HR* Rocuronium Bromide 50 MG/5 ML VIAL IVP ONE (14:39)
[2020-09-21] MEDS ORDERED: 0.9 % Sodium Chloride 1,000 ML ONE (15:13)
[2020-09-21] MEDS: FentaNYL (PF) 1,000 MCG/100 ML IV.SOLN IVC SCH ×2 (15:37→23:08)
[2020-09-21] MEDS: Cisatracurium 200 MG in 0.9 % Sodium Chloride 180 ML IVC SCH (15:37)
[2020-09-21] MEDS: Midazolam HCl 50 MG/100 ML IV.SOLN IVC SCH ×2 (15:37→22:12)
[2020-09-21 16:01] LABS: ABG Base Excess -4 mEq/L (-2 to 3); ABG HCO3 22 mEq/L (21-27); ABG Oxygen Saturation 92 % (95-98); ABG PCO2 47 mmHg (35-45); ABG PH 7.29 pH Units (7.32-7.45); ABG PO2 70 mmHg (85-104); ABG TCO2 24 mEq/L (20-26); Blood Gas Modality ASSIST CONTROL; Blood Gas VT 500 cc
[2020-09-21] MEDS: Norepinephrine 4 MG/254 ML IV.SOLN IVC SCH ×2 (16:31→22:14)
[2020-09-21] MEDS: *HR* Metoprolol 5 MG/5 ML VIAL IVP SCH ×2 (17:31→23:51)
[2020-09-21] MEDS: Doxycycline 100 MG in 0.9 % Sodium Chloride Mini Bag 100 ML IVPB SCH (19:04)
[2020-09-21] MEDS: amLODIPine 5 MG TABLET PO SCH (19:11)
[2020-09-22] MEDS: Insulin LISPRO 300 UNITS/3 ML VIAL SUBQ SCH ×4 (00:17→18:15)
[2020-09-22] MEDS: Cisatracurium 200 MG in 0.9 % Sodium Chloride 180 ML IVC SCH ×3 (00:58→20:37)
[2020-09-22 03:55] LABS: ABG Base Excess -6 mEq/L (-2 to 3); ABG HCO3 23 mEq/L (21-27); ABG Oxygen Saturation 99 % (95-98); ABG PCO2 55 mmHg (35-45); ABG PH 7.22 pH Units (7.32-7.45); ABG PO2 142 mmHg (85-104); ABG TCO2 24 mEq/L (20-26); Blood Gas VT 520 cc
[2020-09-22 04:29] LABS: Basophils % 0.1 %; Hematocrit 39.4 % (37.5-50.1); Hemoglobin 12.2 g/dL (12.9-16.9); Immature Granulocytes % 0.7 % (0-4); Lymphocytes # 0.9 K/mcL (0.6-4.6); Lymphocytes % 5.9 %; Mean Corpuscular Hemoglobin 29.8 pg (28.0-33.3); Mean Corpuscular Volume 96.3 fL (83.0-100.0); Mean Platelet Volume 14.3 fL (9.4-12.4); Monocytes # 0.2 K/mcL (0.0-1.3); Monocytes % 1.6 %; Nucleated Red Blood Cells 0.3 /100 WBC (0); Platelet Count 190 K/mcL (140-400); Red Blood Count 4.09 M/mcL (4.19-5.50); Red Cell Distribution Width 14.1 % (11.5-14.5); Segmented Neutrophils % 91.7 %; White Blood Count 14.6 K/mcL (4.3-11.1)
[2020-09-22 04:32] LABS: Fibrinogen 512 mg/dL (169-393)
[2020-09-22 04:33] LABS: INR 4.1
[2020-09-22 04:34] LABS: Neutrophils # 13.4 K/mcL (1.6-8.9)
[2020-09-22 04:44] LABS: Albumin 2.7 g/dL (3.5-5.7); Albumin/Globulin Ratio 0.8 (1.1-2.2); Bilirubin,Total 0.4 mg/dL (0.3-1.0); Calcium 8.4 mg/dL (8.6-10.3); Globulin 3.5 g/dL (2.4-3.5); Magnesium 2.7 mg/dL (1.6-2.6); Phosphorous 7.5 mg/dL (2.7-4.5); Potassium 4.5 mEq/L (3.5-5.1); Total Protein 6.2 g/dL (6.4-8.9)
[2020-09-22 04:45] LABS: Prothrombin Time 45.5 Seconds (9.4-12.1)
[2020-09-22 04:55] LABS: D-Dimer 22500 ng/mLFEU (0-500)
[2020-09-22] MEDS: Doxycycline 100 MG in 0.9 % Sodium Chloride Mini Bag 100 ML IVPB SCH ×2 (05:13→18:15)
[2020-09-22] MEDS: *HR* Metoprolol 5 MG/5 ML VIAL IVP SCH ×2 (05:13→11:07)
[2020-09-22 05:16] LABS: Platelet Estimate Normal (Normal)
[2020-09-22] MEDS: Midazolam HCl 50 MG/100 ML IV.SOLN IVC SCH ×3 (06:06→21:48)
[2020-09-22] MEDS: FentaNYL (PF) 1,000 MCG/100 ML IV.SOLN IVC SCH ×3 (06:06→20:35)
[2020-09-22] MEDS ORDERED: 0.9 % Sodium Chloride 250 ML IVC PRN (07:18)
[2020-09-22] MEDS ORDERED: 0.9 % Sodium Chloride 1,000 ML PRIME SCH (07:30)
[2020-09-22] MEDS: Cefepime HCl 1,000 MG in Water for inj. (sterile) 10 ML IVP SCH (07:59)
[2020-09-22] MEDS: allopurinoL 100 MG TABLET PO SCH (07:59)
[2020-09-22] MEDS: Dexamethasone 4 MG/ML VIAL IVP SCH (07:59)
[2020-09-22] MEDS: Aspirin Enteric Coated 81 MG Tablet PO SCH (07:59)
[2020-09-22 08:19] LABS: ABG Base Excess -5 mEq/L (-2 to 3); ABG HCO3 23 mEq/L (21-27); ABG Oxygen Saturation 95 % (95-98); ABG PCO2 54 mmHg (35-45); ABG PH 7.23 pH Units (7.32-7.45); ABG PO2 91 mmHg (85-104); ABG TCO2 24 mEq/L (20-26); Blood Gas Modality ASSIST CONTROL; Blood Gas VT 520 cc
[2020-09-22 09:39] LABS: Hepatitis B Surface Antibody < 3.10 mIU/mL
[2020-09-22 09:50] LABS: Hepatitis B Surface Antigen Nonreactive (Nonreactive)
[2020-09-22] MEDS ORDERED: Artificial Tears SOLN 15 ML BOTTLE BOTH EYES PRN (10:43)
[2020-09-22] MEDS: Artificial Tears SOLN 15 ML BOTTLE BOTH EYES SCH ×3 (11:04→20:35)
[2020-09-22] MEDS ORDERED: Pantoprazole 40 MG VIAL IVP SCH (11:45)
[2020-09-22] MEDS ORDERED: *HR* Heparin 10,000 UNIT/10 ML VIAL IV PRN (13:19)
[2020-09-22] MEDS ORDERED: *HR* Metoprolol 5 MG/5 ML VIAL IVP ONE (14:00)
[2020-09-22] MEDS ORDERED: EPINEPHrine 1 MG in D5% in Water 250 ML IVC SCH (14:30)
[2020-09-22] MEDS: *HR* Metoprolol 5 MG/5 ML VIAL IVP PRN ×2 (14:46→21:10)
[2020-09-22] MEDS: *HR* Acetylcysteine 20% 600 MG/3 ML ORAL SYRINGE PO SCH ×2 (14:47→17:39)
[2020-09-22] MEDS: Dexmedetomidine HCl 400 MCG/100 ML MLS IVC SCH (17:39)
[2020-09-22 19:45] LABS: ABG Base Excess -3 mEq/L (-2 to 3); ABG HCO3 23 mEq/L (21-27); ABG Oxygen Saturation 94 % (95-98); ABG PCO2 46 mmHg (35-45); ABG PH 7.32 pH Units (7.32-7.45); ABG PO2 77 mmHg (85-104); ABG TCO2 25 mEq/L (20-26); Blood Gas Modality ASSIST CONTROL; Blood Gas VT 450 cc
[2020-09-22] MEDS: Chlorhexidine Rinse 15 ML MOUTHWASH MM SCH (21:10)
[2020-09-22] MEDS: Pantoprazole 40 MG VIAL IVP SCH (21:34)
[2020-09-22 21:49] LABS: ABG Base Excess -5 mEq/L (-2 to 3); ABG HCO3 22 mEq/L (21-27); ABG Oxygen Saturation 99 % (95-98); ABG PCO2 45 mmHg (35-45); ABG PH 7.29 pH Units (7.32-7.45); ABG PO2 155 mmHg (85-104); ABG TCO2 23 mEq/L (20-26)
[2020-09-23] MEDS: Insulin LISPRO 300 UNITS/3 ML VIAL SUBQ SCH ×5 (00:25→23:51)
[2020-09-23] MEDS: Artificial Tears SOLN 15 ML BOTTLE BOTH EYES SCH ×7 (00:25→22:53)
[2020-09-23] MEDS: FentaNYL (PF) 1,000 MCG/100 ML IV.SOLN IVC SCH ×3 (04:14→18:52)
[2020-09-23 04:38] LABS: Red Cell Distribution Width 14.4 % (11.5-14.5)
[2020-09-23 04:39] LABS: Basophils % 0.2 %; Hematocrit 37.9 % (37.5-50.1); Hemoglobin 11.7 g/dL (12.9-16.9); Immature Granulocytes % 0.9 % (0-4); Immature Platelets 13.8 % (1.1-6.1); Lymphocytes % 7.4 %; Mean Corpuscular HGB Conc 30.9 g/dL (31.6-35.5); Mean Corpuscular Hemoglobin 29.8 pg (28.0-33.3); Mean Corpuscular Volume 96.4 fL (83.0-100.0); Mean Platelet Volume 14.4 fL (9.4-12.4); Monocytes # 0.3 K/mcL (0.0-1.3); Monocytes % 2.6 %; Nucleated Red Blood Cells 1.6 /100 WBC (0); Platelet Count 172 K/mcL (140-400); Red Blood Count 3.93 M/mcL (4.19-5.50); Segmented Neutrophils % 88.9 %; White Blood Count 13.1 K/mcL (4.3-11.1)
[2020-09-23 04:43] LABS: INR 4.9; Prothrombin Time 53.9 Seconds (9.4-12.1)
[2020-09-23 05:01] LABS: Calcium 7.8 mg/dL (8.6-10.3); Potassium 5.2 mEq/L (3.5-5.1)
[2020-09-23 05:06] LABS: Neutrophils # 11.7 K/mcL (1.6-8.9)
[2020-09-23 05:07] LABS: Large Platelets Present (Not Present); Platelet Estimate Normal (Normal)
[2020-09-23] MEDS: *HR* Metoprolol 5 MG/5 ML VIAL IVP PRN (05:45)
[2020-09-23] MEDS: Doxycycline 100 MG in 0.9 % Sodium Chloride Mini Bag 100 ML IVPB SCH (05:45)
[2020-09-23] MEDS: Pantoprazole 40 MG VIAL IVP SCH ×2 (05:46→17:10)
[2020-09-23] MEDS: Midazolam HCl 50 MG/100 ML IV.SOLN IVC SCH ×3 (06:05→22:57)
[2020-09-23] MEDS: *HR* Acetylcysteine 20% 600 MG/3 ML ORAL SYRINGE PO SCH ×3 (07:52→17:10)
[2020-09-23] MEDS: Aspirin Enteric Coated 81 MG Tablet PO SCH (07:52)
[2020-09-23] MEDS: Cisatracurium 200 MG in 0.9 % Sodium Chloride 180 ML IVC SCH ×2 (07:57→18:29)
[2020-09-23] MEDS ORDERED: Calcium Gluconate 1gm/50mL 1 GM/50 ML BAG IVPB PRN (08:02)
[2020-09-23] MEDS ORDERED: *HR* Heparin 5,000 UNIT/ML VIAL CRRT PRN (08:02)
[2020-09-23] MEDS: Chlorhexidine Rinse 15 ML MOUTHWASH MM SCH ×2 (08:13→19:45)
[2020-09-23] MEDS: Dexamethasone Sodium Phos/PF 10 MG/ML VIAL IVP SCH (08:14)
[2020-09-23] MEDS: Cefepime HCl 1,000 MG in Water for inj. (sterile) 10 ML IVP SCH (08:14)
[2020-09-23] MEDS: allopurinoL 100 MG TABLET PO SCH (08:14)
[2020-09-23] MEDS ORDERED: 0.9 % Sodium Chloride 1,000 ML PRIME SCH (08:15)
[2020-09-23] MEDS ORDERED: Amiodarone Premix 360 MG/200 ML BAG IVC ONE (11:22)
[2020-09-23] MEDS ORDERED: Amiodarone Premix 150 MG/100 ML BAG IVPB ONE (11:22)
[2020-09-23] MEDS: Dexmedetomidine HCl 400 MCG/100 ML MLS IVC SCH ×2 (11:56→22:47)
[2020-09-23 12:49] LABS: ABG Base Excess -7 mEq/L (-2 to 3); ABG HCO3 19 mEq/L (21-27); ABG Oxygen Saturation 94 % (95-98); ABG PCO2 42 mmHg (35-45); ABG PH 7.28 pH Units (7.32-7.45); ABG PO2 78 mmHg (85-104); ABG TCO2 21 mEq/L (20-26); Blood Gas Modality AF; Blood Gas VT 450 cc
[2020-09-23] MEDS: Phenylephrine 20 MG in 0.9 % Sodium Chloride 250 ML IVC SCH ×3 (13:22→22:00)
[2020-09-23] MEDS: PrismaSATE BGK 4/2.5 5,000 ML CRRT SCH ×4 (15:08→19:45)
[2020-09-23] MEDS: Calcium Chloride 4,000 MG in 0.9 % Sodium Chloride 1,000 ML CRRT SCH (15:09)
[2020-09-23 16:28] LABS: VBG Ionized Calcium 0.88 mmol/L (1.15-1.35)
[2020-09-23] MEDS: Calcium Gluconate 1gm/50mL 1 GM/50 ML BAG IVPB PRN ×2 (17:00→18:51)
[2020-09-23] MEDS: Norepinephrine 4 MG/254 ML IV.SOLN IVC SCH (17:11)
[2020-09-23 18:25] LABS: VBG Ionized Calcium 0.96 mmol/L (1.15-1.35)
[2020-09-23] MEDS: Amiodarone Premix 360 MG/200 ML BAG IVC SCH (21:00)
[2020-09-24 00:03] LABS: VBG Ionized Calcium 1.04 mmol/L (1.15-1.35)
[2020-09-24] MEDS: Phenylephrine 50 MG in 0.9 % Sodium Chloride 250 ML IVC SCH ×3 (01:00→22:00)
[2020-09-24] MEDS: FentaNYL (PF) 1,000 MCG/100 ML IV.SOLN IVC SCH ×3 (02:06→18:00)
[2020-09-24] MEDS: Artificial Tears SOLN 15 ML BOTTLE BOTH EYES SCH ×7 (03:04→23:20)
[2020-09-24] MEDS: Cisatracurium 200 MG in 0.9 % Sodium Chloride 180 ML IVC SCH ×2 (04:00→15:00)
[2020-09-24] MEDS: PrismaSATE BGK 4/2.5 5,000 ML CRRT SCH ×4 (04:05)
[2020-09-24 04:24] LABS: ABG Base Excess -9 mEq/L (-2 to 3); ABG HCO3 18 mEq/L (21-27); ABG Oxygen Saturation 94 % (95-98); ABG PCO2 44 mmHg (35-45); ABG PH 7.23 pH Units (7.32-7.45); ABG PO2 82 mmHg (85-104); ABG TCO2 19 mEq/L (20-26); Blood Gas VT 450 cc
[2020-09-24 04:27] LABS: Prothrombin Time 55.3 Seconds (9.4-12.1)
[2020-09-24 04:28] LABS: Calcium 8.9 mg/dL (8.6-10.3); Potassium 4.6 mEq/L (3.5-5.1)
[2020-09-24 04:46] LABS: Basophils % 0.4 %; Mean Corpuscular Volume 98.8 fL (83.0-100.0); Red Cell Distribution Width 14.6 % (11.5-14.5)
[2020-09-24 04:48] LABS: Basophils # 0.1 K/mcL (0.0-0.2); Hemoglobin 12.3 g/dL (12.9-16.9); Immature Granulocytes % 3.1 % (0-4); Immature Platelets 22.9 % (1.1-6.1); Lymphocytes # 2.2 K/mcL (0.6-4.6); Lymphocytes % 11.6 %; Mean Corpuscular HGB Conc 29.3 g/dL (31.6-35.5); Mean Corpuscular Hemoglobin 28.9 pg (28.0-33.3); Mean Platelet Volume 14.3 fL (9.4-12.4); Monocytes # 0.4 K/mcL (0.0-1.3); Monocytes % 2.3 %; Nucleated Red Blood Cells 10.9 /100 WBC (0); Platelet Count 188 K/mcL (140-400); Red Blood Count 4.25 M/mcL (4.19-5.50); Segmented Neutrophils % 82.6 %; White Blood Count 18.6 K/mcL (4.3-11.1)
[2020-09-24 04:53] LABS: Neutrophils # 15.4 K/mcL (1.6-8.9)
[2020-09-24 05:28] LABS: Platelet Estimate Normal (Normal)
[2020-09-24] MEDS: Insulin LISPRO 300 UNITS/3 ML VIAL SUBQ SCH ×4 (05:59→23:26)
[2020-09-24] MEDS: Pantoprazole 40 MG VIAL IVP SCH ×2 (06:00→18:48)
[2020-09-24] MEDS: Midazolam HCl 50 MG/100 ML IV.SOLN IVC SCH ×2 (06:05→15:00)
[2020-09-24 06:07] LABS: VBG Ionized Calcium 1.09 mmol/L (1.15-1.35)
[2020-09-24] MEDS: Calcium Chloride 4,000 MG in 0.9 % Sodium Chloride 1,000 ML CRRT SCH (06:51)
[2020-09-24] MEDS ORDERED: *HR* Heparin 5,000 UNIT/ML VIAL ONE (07:31)
[2020-09-24] MEDS: Amiodarone Premix 360 MG/200 ML BAG IVC SCH ×2 (08:30→20:57)
[2020-09-24] MEDS: Docusate Oral Soln 100 MG/10 ML UDC GTUBE SCH (09:15)
[2020-09-24] MEDS: Chlorhexidine Rinse 15 ML MOUTHWASH MM SCH ×2 (09:15→20:22)
[2020-09-24] MEDS: Dexamethasone Sodium Phos/PF 10 MG/ML VIAL IVP SCH (09:15)
[2020-09-24] MEDS: Cefepime HCl 1,000 MG in Water for inj. (sterile) 10 ML IVP SCH (09:16)
[2020-09-24] MEDS: *HR* Acetylcysteine 20% 600 MG/3 ML ORAL SYRINGE PO SCH ×3 (09:16→15:52)
[2020-09-24] MEDS: Insulin DETEMIR 100 UNIT/ML X5UNITS SUBQ SCH ×2 (09:16→20:21)
[2020-09-24] MEDS: Aspirin Enteric Coated 81 MG Tablet PO SCH (09:17)
[2020-09-24] MEDS: Norepinephrine 4 MG/254 ML IV.SOLN IVC SCH ×2 (09:55→16:36)
[2020-09-24] MEDS: Cefepime HCl 2,000 MG in Water for inj. (sterile) 20 ML IVP SCH (18:47)
[2020-09-24] MEDS: Dexmedetomidine HCl 400 MCG/100 ML MLS IVC SCH (19:25)
[2020-09-24] MEDS: Ergocalciferol (VIT D2) 50,000 UNIT (1.25MG) CAP PO SCH (20:21)
[2020-09-25] MEDS: Midazolam HCl 50 MG/100 ML IV.SOLN IVC SCH ×3 (00:25→18:20)
[2020-09-25] MEDS: Norepinephrine 4 MG/254 ML IV.SOLN IVC SCH ×3 (00:56→18:16)
[2020-09-25] MEDS: Cisatracurium 200 MG in 0.9 % Sodium Chloride 180 ML IVC SCH ×2 (01:00→10:30)
[2020-09-25] MEDS: FentaNYL (PF) 1,000 MCG/100 ML IV.SOLN IVC SCH ×3 (01:03→15:50)
[2020-09-25] MEDS: Phenylephrine 50 MG in 0.9 % Sodium Chloride 250 ML IVC SCH ×4 (02:11→17:47)
[2020-09-25] MEDS: Artificial Tears SOLN 15 ML BOTTLE BOTH EYES SCH ×4 (03:16→15:51)
[2020-09-25 04:22] LABS: ABG Base Excess -11 mEq/L (-2 to 3); ABG HCO3 18 mEq/L (21-27); ABG Oxygen Saturation 98 % (95-98); ABG PCO2 47 mmHg (35-45); ABG PH 7.18 pH Units (7.32-7.45); ABG PO2 120 mmHg (85-104); ABG TCO2 19 mEq/L (20-26); Blood Gas Modality ASSIST CONTROL; Blood Gas VT 450 cc
[2020-09-25] MEDS: Cefepime HCl 2,000 MG in Water for inj. (sterile) 20 ML IVP SCH (04:31)
[2020-09-25] MEDS: Pantoprazole 40 MG VIAL IVP SCH ×2 (04:31→16:44)
[2020-09-25 04:48] LABS: Mean Corpuscular Volume 97.1 fL (83.0-100.0); Nucleated Red Blood Cells 12.5 /100 WBC (0); Red Cell Distribution Width 14.6 % (11.5-14.5)
[2020-09-25 04:50] LABS: Basophils # 0.1 K/mcL (0.0-0.2); Basophils % 0.5 %; Hematocrit 40.2 % (37.5-50.1); Immature Granulocytes % 4.2 % (0-4); Immature Platelets 21.1 % (1.1-6.1); Lymphocytes # 2.2 K/mcL (0.6-4.6); Lymphocytes % 8.8 %; Mean Corpuscular HGB Conc 29.9 g/dL (31.6-35.5); Monocytes # 1.1 K/mcL (0.0-1.3); Monocytes % 4.4 %; Neutrophils # 20.7 K/mcL (1.6-8.9); Platelet Count 160 K/mcL (140-400); Red Blood Count 4.14 M/mcL (4.19-5.50); Segmented Neutrophils % 82.1 %; White Blood Count 25.2 K/mcL (4.3-11.1)
[2020-09-25 04:56] LABS: INR 6.9; Prothrombin Time 75.3 Seconds (9.4-12.1)
[2020-09-25 05:06] LABS: Calcium 7.5 mg/dL (8.6-10.3); Potassium 5.3 mEq/L (3.5-5.1)
[2020-09-25] MEDS: Insulin LISPRO 300 UNITS/3 ML VIAL SUBQ SCH ×2 (05:17→12:37)
[2020-09-25] MEDS: Chlorhexidine Rinse 15 ML MOUTHWASH MM SCH (07:55)
[2020-09-25] MEDS: Docusate Oral Soln 100 MG/10 ML UDC GTUBE SCH (07:55)
[2020-09-25] MEDS: Dexamethasone Sodium Phos/PF 10 MG/ML VIAL IVP SCH (07:55)
[2020-09-25] MEDS: Insulin DETEMIR 100 UNIT/ML X5UNITS SUBQ SCH (08:01)
[2020-09-25] MEDS: *HR* Acetylcysteine 20% 600 MG/3 ML ORAL SYRINGE PO SCH ×3 (08:48→16:47)
[2020-09-25] MEDS ORDERED: Aspirin 81 MG TAB.CHEW GTUBE SCH (09:00)
[2020-09-25] MEDS: Amiodarone Premix 360 MG/200 ML BAG IVC SCH (09:14)
[2020-09-25 11:46] LABS: ABG Base Excess -11 mEq/L (-2 to 3); ABG HCO3 17 mEq/L (21-27); ABG Oxygen Saturation 92 % (95-98); ABG PCO2 47 mmHg (35-45); ABG PH 7.18 pH Units (7.32-7.45); ABG PO2 79 mmHg (85-104); ABG TCO2 19 mEq/L (20-26); Blood Gas Modality AF; Blood Gas VT 450 cc
[2020-09-25] MEDS: PrismaSATE BGK 4/2.5 5,000 ML CRRT SCH ×6 (12:30→18:17)
[2020-09-25] MEDS: Calcium Chloride 4,000 MG in 0.9 % Sodium Chloride 1,000 ML CRRT SCH (12:31)
[2020-09-25] MEDS: Dexmedetomidine HCl 400 MCG/100 ML MLS IVC SCH (12:59)
[2020-09-25 13:20] LABS: INR 2.2
[2020-09-25 14:34] LABS: VBG Ionized Calcium 0.95 mmol/L (1.15-1.35)
[2020-09-25] MEDS: Calcium Gluconate 1gm/50mL 1 GM/50 ML BAG IVPB PRN (14:45)
[2020-09-25] MEDS ORDERED: Insulin LISPRO 300 UNITS/3 ML VIAL SUBQ SCH (16:00)
[2020-09-25 16:31] LABS: VBG Ionized Calcium 1.14 mmol/L (1.15-1.35)
[2020-09-25 17:27] LABS: Calcium 8.1 mg/dL (8.6-10.3); Magnesium 2.5 mg/dL (1.6-2.6); Phosphorous 6.8 mg/dL (2.7-4.5); Potassium 5.1 mEq/L (3.5-5.1)
[2020-09-25] MEDS ORDERED: Vasopressin 40 UNIT in D5% in Water 100 ML IVC SCH (19:15)
[2020-09-25] MEDS ORDERED: 0.9 % Sodium Chloride 250 ML ONE (19:31)
[2020-09-25] MEDS ORDERED: *HR* Heparin 5,000 UNIT/ML VIAL ONE (19:32)
[2020-09-25] MEDS ORDERED: EPINEPHrine 1 MG in D5% in Water 250 ML IVC SCH (19:45)
[2020-09-25 20:18] VITALS: BP 110/52
[2020-09-25] MEDS ORDERED: Cefepime HCl 1,000 MG in Water for inj. (sterile) 10 ML IVP SCH (21:00)
[2020-09-25] MEDS ORDERED: Insulin DETEMIR 100 UNIT/ML X5UNITS SUBQ SCH (21:00)
== END 2020-09-25 19:50 | disposition expired | DRG 870 ==
LOC: EMEROOARM 19:19 → 2NENU 19:19 → SUATTDRO 21:31 → 2NENU 21:51 → ICNU 09-21 15:02
PROVIDERS: ADMIT Family Medicine; ATTEND Internal Medicine